=== PATIENT | female | born 1945 | race Caucasian/White ===

== ENCOUNTER 2016-07-28 19:15 | Inpatient (IN) | payer BC, OTHER ==
[~2016-07-28] VITALS: Ht 157.5 cm; Wt 77.2 kg
[~2016-07-28 19:15] MED LIST: ASCO1CAP3 PO; CRFL PO; FERR325T5 PO; FLV1 PO; FURO-85 PO; LACT10SO17 PO; MAGN400T6 PO; MILK1CAP PO; MULTCHW PO; NADO20TA PO; ONDA4TAB46 PO; OXYC1TAB3 PO; PANT40TA PO; POTA10CA28 PO; RIFA550T2 PO; SPR/100 PO; THIA100T11 PO
[2016-07-28 19:17] VITALS: Ht 157.5 cm; Wt 77.2 kg
[2016-07-28] MEDS ORDERED: SODIUM CHLORIDE 0.9% 500ML 500 ML IV STA (19:25)
[2016-07-28] MEDS ORDERED: ACETAMINOPHEN 500 MG TAB PO STA (19:25)
--- NOTE | 2016-07-28 19:30 | EMERGENCY ROOM VISIT NOTE ---
History Report prepared by Anatolyibmeagan: Shayna Askew Under the Supervision of: Dr. Lang Plata D.O. First contact with patient: 19:15 Chief Complaint: ALTERED MENTAL STATUS Stated Complaint: ALTERED MENTAL STATUS History of Present Illness The patient is a 71 year old female who presents to the Emergency Room with a persistent altered mental status for the past 2 days. She is accompanied by her sister and was brought to the ED via EMS. The patient has a history of end stage renal disease due to alcoholic cirrhosis and esophageal varices. She lives at home, but has been lethargic, nauseous and vomiting for the past 2 days. Her sister reports she noticed the patient had a fever this morning and seemed to be more confused than normal, so she called an ambulance. The patient was incontinent of urine while en route to the ED. Nursing reports the patient cannot recall the date or year when asked. The patients sister denies any recent falls or head injuries. She admits to some recent hematochezia, but states this is chronic for her. Source of History: patient Onset: [employer] Position: other (global) Timing: other (persistent) Associated Symptoms: + fevers, + nausea, + vomiting, + hematochezia, + weakness (lethargy) Review of Systems See HPI for pertinent positives & negatives. A total of 10 systems reviewed and were otherwise negative. Past Medical & Surgical Medical Problems: (1) Alcoholic cirrhosis of liver (2) FUO (fever of unknown origin) (3) FUO (fever of unknown origin) (4) History of alcohol abuse (5) Hypertension (6) Peptic ulcer disease (7) Umbilical hernia Surgical Problems: (1) History of esophagogastroduodenoscopy (2) History of hysterectomy (3) Incarcerated hernia Family History Cancer Diabetes mellitus FH: heart disease FATHER Hypertension Social History Smoking Status: Never Smoker Alcohol Use: heavy, other Drug Use: none Marital Status: Housing Status: lives alone Occupation Status: retired Current/Historical Medications Scheduled Ascorbic Acid (Vitamin C), 500 MG PO DAILY Ferrous Sulfate (Ferrous Sulfate), 325 MG PO Q2D Fluoxetine (Prozac), 10 MG PO QAM Folic Acid (Folic Acid), 1 MG PO QAM Furosemide (Lasix), 80 MG PO DAILY Magnesium Oxide (Mag-Ox), 400 MG PO BID Milk Thistle (Silybum Marianum (Milk Thistle), 1 CAP PO DAILY Multiple Vitamins W/ Minerals (Centrum Silver), 1 TAB PO DAILY Nadolol (Corgard), 10 MG PO DAILY Pantoprazole (Protonix), 40 MG PO BID Potassium Chloride (Micro-K Ext Rel), 10 MEQ PO DAILY Rifaximin (Xifaxan), 550 MG PO BID Spironolactone (Aldactone), 200 MG PO DAILY Sucralfate (Carafate), 1 GM PO QID Thiamine Hcl (Vitamin B-1), 100 MG PO QAM Scheduled PRN Lactulose (Chronulac), 20 GM PO HS PRN for Constipation Ondansetron Hcl (Zofran), 4 MG PO DAILY PRN for Nausea Tramadol (Ultram), 50 MG PO TID PRN for Pain Allergies Coded Allergies: Guaifenesin (Verified Allergy, Unknown, Unknown, 11/28/14) Morphine (Verified Allergy, Unknown, kidney failure, 11/28/14) Dextromethorphan (Verified Adverse Reaction, Intermediate, PALPITATIONS, 11/28/14) Doxylamine (Verified Adverse Reaction, Intermediate, PALPITATIONS, ) Pseudoephedrine (Verified Adverse Reaction, Intermediate, PALPITATIONS, ) Iodinated Diagnostic Agents (Verified Adverse Reaction, Unknown, KIDNEY PROBLEMS WITH CONTRAST DYE, 11/28/14) Physical Exam Vital Signs Date Time Temp Pulse Resp B/P (MAP) Pulse Ox O2 Delivery O2 Flow Rate FiO2 07/28/16 23:17 70 22 76/43 98 Room Air 07/28/16 22:36 72 20 81/46 98 07/28/16 21:55 74 22 90/43 98 Room Air 07/28/16 21:12 76 22 85/43 98 07/28/16 20:36 77 20 96/51 98 Room Air 07/28/16 20:00 82 26 102/57 98 Room Air 07/28/16 19:40 86 07/28/16 19:40 86 07/28/16 19:33 Room Air 07/28/16 19:17 39.0 85 26 113/46 95 Room Air Physical Exam GENERAL: Patient is listless, answers questions slowly and appears to be confused at times. EYES: The conjunctivae are clear. The pupils are round and reactive. EARS, NOSE, MOUTH AND THROAT: The nose is without any evidence of any deformity. Mucous membranes are dry, tongue is midline NECK: The neck is nontender and supple. RESPIRATORY: Lung sounds are diminished at both bases, no tachypnea or conversational dyspnea appreciated. CARDIOVASCULAR: Heart sounds are tachycardic but regular, no definite murmur noted to auscultation. GASTROINTESTINAL: The abdomen is mildly distended but soft. No specific tenderness, guarding or rigidity. PELVIS: The Pelvis is stable. No tenderness to palpation is noted. BACK: No midline tenderness or or step-off noted range of motion in flexion extension as well as rotation no signs of muscle spasm noted MUSCULOSKELETAL/EXTREMITIES: There is no evidence of gross deformity full range of motion is noted in the hips and shoulders SKIN: Pedal edema bilaterally. There is no obvious evidence of any rash. There are no petechiae, pallor or cyanosis noted. NEUROLOGIC: Patient is awake alert and oriented x3 Medical Decision & Procedures ER Provider Diagnostic Interpretation: Radiology results as stated below per my review and radiologist interpretation: CT OF THE HEAD WITHOUT CONTRAST CLINICAL HISTORY: Altered mental status. Fever. COMPARISON STUDY: Head CT November 28, 2014. TECHNIQUE: Helical axial images of the head were obtained without IV contrast. Automated exposure control was utilized for the study. FINDINGS: No acute intracranial hemorrhage, midline shift or mass effect is present. Mild atrophy is again noted. Ventricular system is stable. Basilar cisterns are patent. There are no extra-axial collections. Scattered white matter hypodensities suggest small vessel disease. There are no findings to suggest acute dural sinus thrombosis or acute territorial infarct. There are no significant calvarial abnormalities. Visualized portions of the sinuses and mastoid air cells are clear. IMPRESSION: No acute intracranial findings. Electronically signed by: Asif Espinoza M.D. 07/28/2016 9:03 PM CHEST ONE VIEW PORTABLE CLINICAL HISTORY: Sepsis COMPARISON STUDY: Chest radiograph November 28, 2014. FINDINGS: There is no pneumothorax or pleural effusion. No consolidation is identified. Cardiomediastinal silhouette is stable and there is no evidence of pulmonary edema. Appearance of the chest is unchanged. Minimal left basilar opacity suggests atelectasis. IMPRESSION: No acute cardiopulmonary findings. Electronically signed by: Asif Espinoza M.D. 07/28/2016 7:[address] OF THE ABDOMEN AND PELVIS WITHOUT CONTRAST CLINICAL HISTORY: Fever. Altered mental status. COMPARISON STUDY: CT of the abdomen and pelvis November 29, 2014. TECHNIQUE: Axial images of the abdomen and pelvis were obtained without IV contrast. Images were reviewed in the axial, sagittal, and coronal planes. FINDINGS: Visualized portions of the lower chest demonstrate a small left pleural effusion. Evaluation of the abdomen and pelvis is suboptimal on this unenhanced exam. As before, the liver is shrunken and dysmorphic with enlargement of the lateral segment. There is fissuring widening. The findings represent cirrhosis. Sensitivity for detection of hepatic lesions is diminished on this unenhanced exam but none are identified. There is a small amount of abdominal and pelvic ascites. Extensive varices are noted. Borderline splenomegaly is unchanged. There are gallstones within the gallbladder. There is no pneumatosis, free air or portal venous gas. There is wall calcification of the portal vein and superior mesenteric vein due to portal hypertension. There is no biliary or pancreatic ductal dilatation. Several ventral hernias are noted which contain collaterals with minimal infiltration. There is no evidence for a bowel obstruction. The appendix is normal. There is mild wall thickening of the ascending colon. Mesenteric infiltration and vessel engorgement is likely related to portal hypertension. There are no suspicious osseous lesions. A Dixon balloon and gas is present within the bladder. Unenhanced images of the adrenal glands and kidneys are unremarkable. There is no hydronephrosis. IMPRESSION: 1. Cirrhosis with manifestations of portal hypertension including a small amount of ascites and extensive varices. 2. Mild wall thickening of the ascending colon. This is likely related to portal hypertension although a nonspecific colitis could appear similar. 3. Suboptimal evaluation of the abdomen and pelvis given lack of contrast on this exam. 4. Cholelithiasis. 5. No bowel obstruction. 6. Several ventral hernias, as described above. Electronically signed by: Asif Espinoza M.D. 07/28/2016 9:15 PM Laboratory Results Test 07/28/16 18:50 07/28/16 19:32 07/28/16 19:35 07/28/16 19:56 Immature Granulocyte % (Auto) 0.4 % White Blood Count 13.47 K/uL (4.8-10.8) Red Blood Count 3.72 M/uL (4.2-5.4) Hemoglobin 10.1 g/dL (12.0-16.0) Hematocrit 30.3 % (37-47) Mean Corpuscular Volume 81.5 fL (80-100) Mean Corpuscular Hemoglobin 27.2 pg (25-34) Mean Corpuscular Hemoglobin Concent 33.3 g/dl (32-36) Platelet Count 352 K/uL (130-400) Mean Platelet Volume 9.4 fL (7.4-10.4) Neutrophils (%) (Auto) 81.9 % Lymphocytes (%) (Auto) 9.7 % Monocytes (%) (Auto) 7.9 % Eosinophils (%) (Auto) 0.0 % Basophils (%) (Auto) 0.1 % Neutrophils # (Auto) 11.04 K/uL (1.4-6.5) Lymphocytes # (Auto) 1.30 K/uL (1.2-3.4) Monocytes # (Auto) 1.06 K/uL (0.11-0.59) Eosinophils # (Auto) 0.00 K/uL (0-0.5) Basophils # (Auto) 0.02 K/uL (0-0.2) Immature Granulocyte # (Auto) 0.05 K/uL (0.00-0.02) Erythrocyte Sedimentation Rate 59 mm/hr (0-21) Prothrombin Time 14.1 SECONDS (9.0-12.0) Prothromb Time International Ratio 1.3 (0.9-1.1) Activated Partial Thromboplast Time 29.1 SECONDS (21.0-31.0) Partial Thromboplastin Ratio 1.1 Phosphorus Level 2.6 mg/dl (2.5-4.9) Total Creatine Kinase 47 U/L (26-192) Creatine Kinase MB < 0.5 ng/ml (0.5-3.6) Creatine Kinase MB Ratio (0-3.0) Troponin I < 0.015 ng/ml (0-0.045) C-Reactive Protein 1.83 mg/dl (0-0.29) Pro-B-Type Natriuretic Peptide 383 pg/ml (0-900) Lipase 110 U/L (73-393) Ammonia 27.0 umol/L (11-32) Bedside Lactic Acid Venous 2.42 mmol/L (0.90-1.70) Urine Color YELLOW Urine Appearance CLEAR (CLEAR) Urine pH 7.0 (4.5-7.5) Urine Specific [place] 1.014 (1.000-1.030) Urine Protein NEG (NEG) Urine Glucose (UA) NEG (NEG) Urine Ketones NEG (NEG) Urine Occult Blood NEG (NEG) Urine Nitrite NEG (NEG) Urine Bilirubin NEG (NEG) Urine Urobilinogen NEG (NEG) Urine Leukocyte Esterase SMALL (NEG) Urine WBC (Auto) 1-5 /hpf (0-5) Urine RBC (Auto) 0-4 /hpf (0-4) Urine Hyaline Casts (Auto) 1-5 /lpf (0-5) Urine Epithelial Cells (Auto) >30 /lpf (0-5) Urine Bacteria (Auto) NEG (NEG) Urine Renal Epithelial Cells /lpf (0-5) Test 07/28/16 20:25 Venous Blood pH 7.41 (7.36-7.41) Venous Blood Partial Pressure CO2 37 mmHg (38.0-50.0) Venous Blood Partial Pressure O2 29 mmHg Venous Blood HCO3 23 mmol/L Venous Blood Oxygen Saturation < 60.0 % Venous Blood Base Excess -1.5 mmol/L Laboratory results per my review. Medications Administered Medications (Trade) Dose Ordered Sig/Nael Route Start Time Stop Time Status Last Admin Dose Admin Acetaminophen (Tylenol Tab) 1,000 mg ONE STAT PO 07/28/16 19:25 07/28/16 19:27 DC 07/28/16 19:45 1,000 MG Sodium Chloride 500 ml @ 999 mls/hr Q31M STAT IV 07/28/16 19:25 07/28/16 19:55 DC 07/28/16 19:49 999 MLS/HR Levofloxacin (Levaquin / D5W) 750 mg NOW STAT IV 07/28/16 20:25 07/28/16 20:27 DC 07/28/16 20:42 750 MG Pantoprazole Sodium 40 mg/ Syringe 10 ml @ 5 mls/min NOW ONCE IV 07/28/16 20:45 07/28/16 20:46 DC 07/28/16 20:58 5 MLS/MIN Famotidine (Pepcid 20mg/100 ml) 20 mg ONE STAT IV 07/28/16 20:40 07/28/16 20:41 DC 07/28/16 20:57 20 MG Sodium Chloride 1,000 ml @ 999 mls/hr Q1H1M STAT IV 07/28/16 21:14 07/28/16 22:14 DC 07/28/16 21:14 999 MLS/HR ECG Indication: altered mental status Rate (beats per minute): 85 Rhythm: sinus rhythm Findings: ST depression (diffuse ST depressions), no ectopy Comparison ECG Date: Changes are present but increased when compared to EKG from November 28, 2014 ED Course 1918: The patient was evaluated in room A12. A complete history and physical examination were performed. 1924: NSS 500 ml @ 999 mls/hr IV, Acetaminophen 1000 mg PO. 2024: Levaquin 750 mg IV. 2039: Famotidine 20 mg IV. 2044: Pantoprazole Sodium 40 mg/Syringe 10 ml @ 5 mls/min IV. 2123: NSS 1000 ml @ 999 mls/hr IV. 2207: I discussed the patients case with Dr. Chavira [facility] Hospitalist. The patient will be further evaluated. Medical Decision Medication Reconciliation: I attest that I have personally reviewed the patient' s current medications list. Blood pressure screening: Patient was found to have normal blood pressure on screening and does not require follow-up. Prior records/ancillary studies reviewed. Triage Nursing notes reviewed. Additional history obtained from the patients sister. The patient's history was concerning for fever. Differential diagnosis: Etiologies such as viral syndrome, otitis, pharyngitis, pneumonia, influenza, meningitis, urinary tract infection, sepsis, bacteremia, as well as others were entertained. The patient is a 71-year-old female who presented to emergency department for an evaluation of fever and altered mental status. She has a history of bacterial peritonitis in the past because of cirrhosis and ascites. The patient did not have any abdominal tenderness on physical exam. She was treated with Tylenol and when her fever improved her mental status improved as well. I discussed the patient's laboratory and radiographic studies with her. She was treated with IV fluids and IV antibiotics in emergency department. She had continued hypotension in the emergency department. I discussed her case with the on-call [facility] [place] hospitalist. They've agreed to evaluate the patient in the emergency department for further management and disposition. Consults Time Called: 2206 Consulting Physician: Dr. Chavira [facility] Hospitalist Returned Call: [phone] I discussed the patients case with Dr. Chavira [facility] Hospitalist. The patient will be further evaluated. Impression Primary Impression: Fever Additional Impressions: Altered mental status GI bleeding Hypotension Scribe Attestation The scribe's documentation has been prepared under my direction and personally reviewed by me in its entirety. I confirm that the note above accurately reflects all work, treatment, procedures, and medical decision making performed by me. Departure Information Dispostion Being Evaluated By Hospitalist Celestine Pendleton M.D. (PCP) Patient Instructions My [facility] Problem Qualifiers Primary Impression: Fever Fever type: unspecified Qualified Codes: R50.9 - Fever, unspecified Additional Impressions: Altered mental status Altered mental status type: unspecified Qualified Codes: R41.82 - Altered mental status, unspecified GI bleeding GI bleed type/associated pathology: unspecified gastrointestinal hemorrhage type Qualified Codes: K92.2 - Gastrointestinal hemorrhage, unspecified Hypotension Hypotension type: unspecified hypotension type Qualified Codes: I95.9 - Hypotension, unspecified
[2016-07-28 19:33] LABS: BASO % 0.1 %; BASO ABS # 0.02 K/uL (0-0.2); COMPLETE YES; HEMATOCRIT 30.3 % (37-47); IG% 0.4 %; LYMPH % 9.7 %; MEAN CELL VOLUME 81.5 fL (80-100); MEAN CORPUSCULAR HEMOGLOBIN 27.2 pg (25-34); MEAN CORPUSCULAR HGB CONC 33.3 g/dl (32-36); MEAN PLATELET VOLUME 9.4 fL (7.4-10.4); MONO % 7.9 %; NEUT % 81.9 %; PLATELET COUNT 352 K/uL (130-400); RED BLOOD COUNT 3.72 M/uL (4.2-5.4); WHITE BLOOD COUNT 13.47 K/uL (4.8-10.8)
[2016-07-28 19:43] LABS: INR 1.3 (0.9-1.1); PARTIAL THROMBOPLASTIN RATIO 1.1; PROTHROMBIN TIME (PATIENT) 14.1 SECONDS (9.0-12.0)
--- NOTE | 2016-07-28 19:46 | DIAGNOSTIC IMAGING REPORT ---
CHEST ONE VIEW PORTABLE CLINICAL HISTORY: Sepsis COMPARISON STUDY: Chest radiograph November 28, 2014. FINDINGS: There is no pneumothorax or pleural effusion. No consolidation is identified. Cardiomediastinal silhouette is stable and there is no evidence of pulmonary edema. Appearance of the chest is unchanged. Minimal left basilar opacity suggests atelectasis. IMPRESSION: No acute cardiopulmonary findings. Electronically signed by: Asif Espinoza M.D. 07/28/2016 7:44 PM Dictated Date/Time: 07/28/2016 7:43 PM
[2016-07-28 19:53] LABS: AST/SGOT 42 U/L (15-37); BLOOD UREA NITROGEN 13 mg/dl (7-18); BUN/CREATININE RATIO 10.9 (10-20); CARBON DIOXIDE 24 mmol/L (21-32); CHLORIDE 97 mmol/L (98-107); GLUCOSE 124 mg/dl (70-99); POTASSIUM 3.9 mmol/L (3.5-5.1); SODIUM 132 mmol/L (136-145)
[2016-07-28 19:59] LABS: ALB/GLOB RATIO 0.5 (0.9-2); ALKALINE PHOSPHATASE 153 U/L (45-117); ALT/SGPT 26 U/L (12-78); C-REACTIVE PROTEIN 1.83 mg/dl (0-0.29); PHOSPHORUS 2.6 mg/dl (2.5-4.9)
[2016-07-28 20:08] LABS: URINE APPEARANCE CLEAR (CLEAR); URINE BILIRUBIN NEG (NEG); URINE COLOR YELLOW; URINE EPITHELIAL CELL AUTO >30 /lpf (0-5); URINE NITRITE NEG (NEG); URINE SPECIFIC GRAVITY 1.014 (1.000-1.030); UROBILINOGEN NEG (NEG); ZZURINE CULT IF INDIC CATH NO
[2016-07-28] MEDS ORDERED: PANT40TA PO (20:22)
[2016-07-28] MEDS ORDERED: FLUO10CA48 PO (20:22)
[2016-07-28] MEDS ORDERED: TRAM-10 PO (20:22)
[2016-07-28 20:23] LABS: MANUAL MICROSCOPIC REQUIRED? NO; REVIEW REQ? YES
[2016-07-28] MEDS ORDERED: LEVAQUIN 750MG / 150ML D5W IV STA (20:25)
[2016-07-28 20:32] LABS: VEN BLD GAS O2 SATURATION < 60.0 %; VEN BLOOD GAS BASE EXCESS -1.5 mmol/L; VENOUS BLOOD GAS PCO2 37 mmHg (38.0-50.0); VENOUS BLOOD GAS PO2 29 mmHg
[2016-07-28] MEDS ORDERED: FAMOTIDINE 20MG/102 ML D5W IV STA (20:40)
[2016-07-28] MEDS ORDERED: PANTOprazole INJ 40 MG in SYRINGE 0 ML IV ONE (20:45)
--- NOTE | 2016-07-28 21:05 | DIAGNOSTIC IMAGING REPORT ---
CT OF THE HEAD WITHOUT CONTRAST CLINICAL HISTORY: Altered mental status. Fever. COMPARISON STUDY: Head CT November 28, 2014. TECHNIQUE: Helical axial images of the head were obtained without IV contrast. Automated exposure control was utilized for the study. FINDINGS: No acute intracranial hemorrhage, midline shift or mass effect is present. Mild atrophy is again noted. Ventricular system is stable. Basilar cisterns are patent. There are no extra-axial collections. Scattered white matter hypodensities suggest small vessel disease. There are no findings to suggest acute dural sinus thrombosis or acute territorial infarct. There are no significant calvarial abnormalities. Visualized portions of the sinuses and mastoid air cells are clear. IMPRESSION: No acute intracranial findings. Electronically signed by: Asif Espinoza M.D. 07/28/2016 9:03 PM Dictated Date/Time: 07/28/2016 9:01 PM
[2016-07-28] MEDS ORDERED: SODIUM CHLORIDE 0.9% 1000ML 1,000 ML IV STA (21:14)
--- NOTE | 2016-07-28 21:16 | DIAGNOSTIC IMAGING REPORT ---
CT OF THE ABDOMEN AND PELVIS WITHOUT CONTRAST CLINICAL HISTORY: Fever. Altered mental status. COMPARISON STUDY: CT of the abdomen and pelvis November 29, 2014. TECHNIQUE: Axial images of the abdomen and pelvis were obtained without IV contrast. Images were reviewed in the axial, sagittal, and coronal planes. FINDINGS: Visualized portions of the lower chest demonstrate a small left pleural effusion. Evaluation of the abdomen and pelvis is suboptimal on this unenhanced exam. As before, the liver is shrunken and dysmorphic with enlargement of the lateral segment. There is fissuring widening. The findings represent cirrhosis. Sensitivity for detection of hepatic lesions is diminished on this unenhanced exam but none are identified. There is a small amount of abdominal and pelvic ascites. Extensive varices are noted. Borderline splenomegaly is unchanged. There are gallstones within the gallbladder. There is no pneumatosis, free air or portal venous gas. There is wall calcification of the portal vein and superior mesenteric vein due to portal hypertension. There is no biliary or pancreatic ductal dilatation. Several ventral hernias are noted which contain collaterals with minimal infiltration. There is no evidence for a bowel obstruction. The appendix is normal. There is mild wall thickening of the ascending colon. Mesenteric infiltration and vessel engorgement is likely related to portal hypertension. There are no suspicious osseous lesions. A Dixon balloon and gas is present within the bladder. Unenhanced images of the adrenal glands and kidneys are unremarkable. There is no hydronephrosis. IMPRESSION: 1. Cirrhosis with manifestations of portal hypertension including a small amount of ascites and extensive varices. 2. Mild wall thickening of the ascending colon. This is likely related to portal hypertension although a nonspecific colitis could appear similar. 3. Suboptimal evaluation of the abdomen and pelvis given lack of contrast on this exam. 4. Cholelithiasis. 5. No bowel obstruction. 6. Several ventral hernias, as described above. Electronically signed by: Asif Espinoza M.D. 07/28/2016 9:15 PM Dictated Date/Time: 07/28/2016 9:03 PM
[2016-07-28] MEDS ORDERED: ONDANSETRON 4 MG TAB PO PRN (22:15)
[2016-07-28] MEDS ORDERED: LACTULOSE SYRUP 20 GM/30 ML UDC PO PRN (22:15)
[2016-07-28] MEDS ORDERED: XYLOCAINE 1%/SOD BICARB 20 ML VIAL INFIL ONE (22:16)
[2016-07-28] MEDS ORDERED: ONDANSETRON INJ 2 MG/ML 2 ML VIAL IV PRN (23:00)
[2016-07-28] MEDS ORDERED: ALUMINUM/MAGNESIUM/SIMETH (MAALOX MAX) 30 ML UDC PO PRN (23:00)
--- NOTE | 2016-07-28 23:17 | History and Physical ---
History & Physical Date & Time of Service: Jul 28, 2016 at 22:01 Chief Complaint: Altered Mental Status Primary Care Physician: Celestine Maxwell M.D. History of Present Illness Source: family, other 71 y/o F Hx end-stage liver disease, recurrent ascites and hepatic encephalopathy. Pt was brought in by family due to confusion above baseline over the past 2 days. She was markedly confused and febrile on arrival to the ER, however, following a litre of fluid, her mental status returned to baseline. She is a poor historian and chronically disoriented although she can answer simple questions. She denies abdominal pain, n/v, SOB a cough or dysuria. She frequently has diarrhea owing to Lactulose use. On initial labs she has an elevated lactic acid and leukocytosis. She is intermittently hypotensive on admission although it is unclear if this is acute or what her baseline BP is. Past Medical/Surgical History Medical Problems: (1) Alcoholic cirrhosis of liver Status: Chronic (2) History of alcohol abuse Status: Chronic (3) Hypertension Status: Chronic (4) Peptic ulcer disease Status: Chronic (5) Umbilical hernia Status: Chronic Surgical Problems: (1) History of esophagogastroduodenoscopy Status: Resolved (2) History of hysterectomy Status: Resolved (3) Incarcerated hernia Status: Resolved Family History Cancer Diabetes mellitus FH: heart disease FATHER Hypertension Social History Pt continues to consume alcohol intermittently. Smoking Status: Never Smoker Drug Use: none Marital Status: Housing status: lives alone Occupational Status: retired Immunizations History of Influenza Vaccine: No History of Tetanus Vaccine?: No History of Pneumococcal: No History of Hepatitis B Vaccine: Yes Hepatitis Immunization Date: Nov 25, 2010 Multi-Drug Resistant Organisms History of MDRO: No Allergies Coded Allergies: Guaifenesin (Verified Allergy, Unknown, Unknown, 11/28/14) Morphine (Verified Allergy, Unknown, kidney failure, 11/28/14) Dextromethorphan (Verified Adverse Reaction, Intermediate, PALPITATIONS, 11/28/14) Doxylamine (Verified Adverse Reaction, Intermediate, PALPITATIONS, ) Pseudoephedrine (Verified Adverse Reaction, Intermediate, PALPITATIONS, ) Iodinated Diagnostic Agents (Verified Adverse Reaction, Unknown, KIDNEY PROBLEMS WITH CONTRAST DYE, 11/28/14) Home Medications Scheduled Ascorbic Acid (Vitamin C), 500 MG PO DAILY Ferrous Sulfate (Ferrous Sulfate), 325 MG PO Q2D Fluoxetine (Prozac), 10 MG PO QAM Folic Acid (Folic Acid), 1 MG PO QAM Furosemide (Lasix), 80 MG PO DAILY Magnesium Oxide (Mag-Ox), 400 MG PO BID Milk Thistle (Silybum [place]um (Milk Thistle), 1 CAP PO DAILY Multiple Vitamins W/ Minerals (Centrum Silver), 1 TAB PO DAILY Nadolol (Corgard), 10 MG PO DAILY Pantoprazole (Protonix), 40 MG PO BID Potassium Chloride (Micro-K Ext Rel), 10 MEQ PO DAILY Rifaximin (Xifaxan), 550 MG PO BID Spironolactone (Aldactone), 200 MG PO DAILY Sucralfate (Carafate), 10 ML PO QID Thiamine Hcl (Vitamin B-1), 100 MG PO QAM Scheduled PRN Lactulose (Chronulac), 30 ML PO HS PRN for Constipation Ondansetron Hcl (Zofran), 4 MG PO DAILY PRN for Nausea Tramadol (Ultram), 50 MG PO TID PRN for Pain Review of Systems Pt is not a reliable historian Physical Exam Vital Signs Date Time Temp Pulse Resp B/P (MAP) Pulse Ox O2 Delivery O2 Flow Rate FiO2 07/28/16 21:12 76 22 85/43 98 07/28/16 20:36 77 20 96/51 98 Room Air 07/28/16 20:00 82 26 102/57 98 Room Air 07/28/16 19:40 86 07/28/16 19:40 86 07/28/16 19:33 Room Air 07/28/16 19:17 39.0 85 26 113/46 95 Room Air General Appearance: WD/WN, no apparent distress Head: normocephalic, atraumatic Eyes: EOMI, + pertinent finding (mild icterus) ENT: normal ENT inspection, hearing grossly normal, TMs normal, pharynx normal Neck: supple, no adenopathy, thyroid normal, no JVD Respiratory/Chest: chest non-tender, lungs clear, normal breath sounds, no respiratory distress, no accessory muscle use Cardiovascular: regular rate, rhythm, no edema, no gallop, no JVD, no murmur, normal peripheral pulses Abdomen/GI: normal bowel sounds, non tender, soft, + distended Back: normal inspection, no CVA tenderness, no muscle spasm, normal range of motion Extremities/Musculoskelatal: normal inspection, no calf tenderness, normal capillary refill, no pedal edema, normal range of motion Neurologic/Psych: concession supervisor II-XII nml as tested, no motor/sensory deficits, alert, normal mood/affect, normal reflexes Skin: warm/dry, no rash, + pertinent finding (Jaundice present) Diagnostics Laboratory Results Results Past 24 Hours Test 07/28/16 18:50 07/28/16 19:32 07/28/16 19:35 07/28/16 19:56 Range/Units White Blood Count 13.47 4.8-10.8 K/uL Red Blood Count 3.72 4.2-5.4 M/uL Hemoglobin 10.1 12.0-16.0 g/dL Hematocrit 30.3 37-47 % Mean Corpuscular Volume 81.5 80-100 fL Mean Corpuscular Hemoglobin 27.2 25-34 pg Mean Corpuscular Hemoglobin Concent 33.3 32-36 g/dl Platelet Count 352 130-400 K/uL Mean Platelet Volume 9.4 7.4-10.4 fL Neutrophils (%) (Auto) 81.9 % Lymphocytes (%) (Auto) 9.7 % Monocytes (%) (Auto) 7.9 % Eosinophils (%) (Auto) 0.0 % Basophils (%) (Auto) 0.1 % Neutrophils # (Auto) 11.04 1.4-6.5 K/uL Lymphocytes # (Auto) 1.30 1.2-3.4 K/uL Monocytes # (Auto) 1.06 0.11-0.59 K/uL Eosinophils # (Auto) 0.00 0-0.5 K/uL Basophils # (Auto) 0.02 0-0.2 K/uL RDW Standard Deviation 50.3 36.4-46.3 fL RDW Coefficient of Variation 16.9 11.5-14.5 % Immature Granulocyte % (Auto) 0.4 % Immature Granulocyte # (Auto) 0.05 0.00-0.02 K/uL Erythrocyte Sedimentation Rate 59 0-21 mm/hr Prothrombin Time 14.1 9.0-12.0 SECONDS Prothromb Time International Ratio 1.3 0.9-1.1 Activated Partial Thromboplast Time 29.1 21.0-31.0 SECONDS Partial Thromboplastin Ratio 1.1 Sodium Level 132 136-145 mmol/L Potassium Level 3.9 3.5-5.1 mmol/L Chloride Level 97 98-107 mmol/L Carbon Dioxide Level 24 21-32 mmol/L Anion Gap 11.0 3-11 mmol/L Blood Urea Nitrogen 13 7-18 mg/dl Creatinine 1.20 0.60-1.20 mg/dl Est Creatinine Clear Calc Drug Dose 39.3 ml/min Estimated GFR () 51.9 Estimated GFR (Non- 44.8 BUN/Creatinine Ratio 10.9 10-20 Random Glucose 124 70-99 mg/dl Calcium Level 8.0 8.5-10.1 mg/dl Phosphorus Level 2.6 2.5-4.9 mg/dl Magnesium Level 2.0 1.8-2.4 mg/dl Total Bilirubin 0.9 0.2-1 mg/dl Aspartate Amino Transf (AST/SGOT) 42 15-37 U/L Alanine Aminotransferase (ALT/SGPT) 26 12-78 U/L Alkaline Phosphatase 153 45-117 U/L Total Creatine Kinase 47 26-192 U/L Creatine Kinase MB < 0.5 0.5-3.6 ng/ml Creatine Kinase MB Ratio 0-3.0 Troponin I < 0.015 0-0.045 ng/ml C-Reactive Protein 1.83 0-0.29 mg/dl Pro-B-Type Natriuretic Peptide 383 0-900 pg/ml Total Protein 6.4 6.4-8.2 gm/dl Albumin 2.1 3.4-5.0 gm/dl Globulin 4.3 2.5-4.0 gm/dl Albumin/Globulin Ratio 0.5 0.9-2 Lipase 110 73-393 U/L Ammonia 27.0 11-32 umol/L Bedside Lactic Acid Venous 2.42 0.90-1.70 mmol/L Urine Color YELLOW Urine Appearance CLEAR CLEAR Urine pH 7.0 4.5-7.5 Urine Specific [place] 1.014 1.000-1.030 Urine Protein NEG NEG Urine Glucose (UA) NEG NEG Urine Ketones NEG NEG Urine Occult Blood NEG NEG Urine Nitrite NEG NEG Urine Bilirubin NEG NEG Urine Urobilinogen NEG NEG Urine Leukocyte Esterase SMALL NEG Urine WBC (Auto) 1-5 0-5 /hpf Urine RBC (Auto) 0-4 0-4 /hpf Urine Hyaline Casts (Auto) 1-5 0-5 /lpf Urine Epithelial Cells (Auto) >30 0-5 /lpf Urine Bacteria (Auto) NEG NEG Urine Renal Epithelial Cells 0-5 /lpf Test 07/28/16 20:25 Range/Units Venous Blood pH 7.41 7.36-7.41 Venous Blood Partial Pressure CO2 37 38.0-50.0 mmHg Venous Blood Partial Pressure O2 29 mmHg Venous Blood HCO3 23 mmol/L Venous Blood Oxygen Saturation < 60.0 % Venous Blood Base Excess -1.5 mmol/L Microbiology Results 07/28/16 Blood Culture, Received Pending 07/28/16 Blood Culture, Received Pending Diagnostic Radiology CT abdomen: 1. Cirrhosis with manifestations of portal hypertension including a small amount of ascites and extensive varices. 2. Mild wall thickening of the ascending colon. This is likely related to portal hypertension although a nonspecific colitis could appear similar. 3. Suboptimal evaluation of the abdomen and pelvis given lack of contrast on this exam. 4. Cholelithiasis. 5. No bowel obstruction. 6. Several ventral hernias, as described above. Impression Assessment and Plan 71 y/o F Hx end-stage liver disease, recurrent ascites and hepatic encephalopathy. Pt was brought in by family due to confusion above baseline over the past 2 days. She was markedly confused and febrile on arrival to the ER, however, following a litre of fluid, her mental status returned to baseline. She is a poor historian and chronically disoriented although she can answer simple questions. She denies abdominal pain, n/v, SOB a cough or dysuria. She frequently has diarrhea owing to Lactulose use. On initial labs she has an elevated lactic acid and leukocytosis. She is intermittently hypotensive on admission although it is unclear if this is acute or what her baseline BP is. 1) Fever - this is not clearly SBP and we do not have a definitive source. She does not have a tender abdomen and her confusion essentially resolved with IVF. I evaluated the pt for a diagnostic paracentesis with an ultrasound. Unfortunately there was no significant fluid collection aside from directly around the liver. She was therefore started on empiric treatment for SBP with Ceftriaxone and albumin largely due to hypotension, abnormal labs and high risk in delaying treatment. If her fever persists she should likely be scheduled for paracentesis with IR. Albumin should be redosed in 3 days if there is evidence for SBP. 2) Cirrhosis - ESLD - she will continue her scheduled medications aside from her diuretics which were held due to dehydration and hypotension. 3) ETOH abuse - no recent consumption per pt - watch for withdrawal although she is symptom-free on admission. Full code - SCDs Total time for this admit including review of labs, meds, imaging, records - discussion with pt and ER attending - 38 min Level of Care Telemetry Resuscitation Status FULL RESUSCITATION VTE Prophylaxis Given or contraindicated: SCD's
[2016-07-29] VITALS (18 sets, daily range): BP systolic 77–112; BP diastolic 40–72; PULSE 59–105; TEMP 36.4–37.4; O2SAT 90–99
[2016-07-29] MEDS: ALBUMIN HUMAN 25% 12.5 GM/50 ML VIAL IV SCH ×8 (00:44→07:58)
[2016-07-29] MEDS: CEFTRIAXONE SOD INJ 1 GM in DEXTROSE 5% ADD-VANTAGE 50ML 50 ML IV SCH (01:02)
[2016-07-29] MEDS: SUCRALFATE 1 GM/10 ML UDC PO SCH ×4 (05:56→21:05)
[2016-07-29 06:47] LABS: BUN/CREATININE RATIO 11.8 (10-20); CREATININE 1.3 mg/dl (0.60-1.20); MAGNESIUM 1.8 mg/dl (1.8-2.4); POTASSIUM 3.2 mmol/L (3.5-5.1)
[2016-07-29 06:50] LABS: HEMATOCRIT 21.7 % (37-47); MEAN CELL VOLUME 82.2 fL (80-100); MEAN CORPUSCULAR HEMOGLOBIN 26.5 pg (25-34); MEAN CORPUSCULAR HGB CONC 32.3 g/dl (32-36); MEAN PLATELET VOLUME 9.2 fL (7.4-10.4); PLATELET COUNT 177 K/uL (130-400); RED BLOOD COUNT 2.64 M/uL (4.2-5.4); WHITE BLOOD COUNT 8.95 K/uL (4.8-10.8)
[2016-07-29] MEDS ORDERED: PNEUMOCOCCAL POLYSACCHARIDES 25 MCG/0.5 ML VIAL/SYR IM. ONE (08:00)
[2016-07-29] MEDS ORDERED: PNEUMOCOCCAL ADMINISTRATION CHARGE ONE (08:00)
[2016-07-29] MEDS: MAGNESIUM OXIDE 400 MG TAB PO SCH ×2 (08:03→21:05)
[2016-07-29] MEDS: THIAMINE HCL 100 MG TAB PO SCH (08:03)
[2016-07-29] MEDS: POTASSIUM CHLORIDE 10 MEQ TABCR PO SCH (08:03)
[2016-07-29] MEDS: FLUOXETINE HCL 10 MG CAP PO SCH (08:03)
[2016-07-29] MEDS: PANTOprazole SOD 40 MG TAB PO SCH ×2 (08:04→21:05)
[2016-07-29] MEDS: FERROUS SULFATE 325 MG TAB PO SCH (08:05)
[2016-07-29] MEDS: RIFAXIMIN TAB 550 MG TAB PO SCH ×2 (08:07→21:05)
[2016-07-29] MEDS: NADOLOL 40 MG TAB PO SCH (08:10)
[2016-07-29] MEDS ORDERED: ALBUMIN HUMAN 25% 12.5 GM/50 ML VIAL IV SCH (08:30)
[2016-07-29] MEDS ORDERED: POTASSIUM CHLORIDE 10 MEQ TABCR PO ONE (08:45)
[2016-07-29] MEDS: POTASSIUM CHLR 10 MEQ / WTR 10 MEQ in PREMIXED WATER 100 ML IV SCH ×2 (08:53→10:10)
[2016-07-29] MEDS ORDERED: SPIRONOLACTONE 100 MG TAB PO SCH (09:00)
[2016-07-29] MEDS ORDERED: SUCRALFATE 1 GM/10 ML UDC PO SCH (09:00)
[2016-07-29 09:20] LABS: FERRITIN 25.7 ng/ml (8.0-388.0)
--- NOTE | 2016-07-29 13:29 | Progress Note ---
Subjective Date of Service: Jul 29, 2016. Subjective Pt evaluation today including: conversation w/ patient, conversation w/ family , physical exam, chart review, lab review, review of studies, review of inpatient medication list Pleasant, alert and orientated, conversational, eating breakfast Problem List Medical Problems: (1) Altered mental status Status: Acute (2) Fever Status: Acute (3) GI bleeding Status: Acute (4) Hypotension Status: Acute Review of Systems Constitutional: + weakness, + fatigue Eyes: No worsening of vision, No eye pain, No redness, No discharge, No diplopia ENT: No hearing loss, No unusual epistaxis, No nasal symptoms, No sore throat, No tinnitus, No dental problems, No trouble swallowing Respiratory: No cough, No sputum, No wheezing, No shortness of breath, No dyspnea on exertion, No dyspnea at rest, No hemoptysis Cardiac: No chest pain, No orthopnea, No PND, No edema, No claudication, No palpitations Abdomen: + problem reported (distended), No pain, No nausea, No vomiting, No diarrhea, No constipation Musculoskeletal: No joint pain, No muscle pain, No swelling, No calf pain Female : No dysuria, No urinary frequency, No hematuria, No incontinence, No abnormal vaginal bleeding, No vaginal discharge Neurologic: No memory loss, No paralysis, No weakness, No numbness/tingling, No vertigo, No balance problems Psychiatric: No depression symptoms, No anhedonism, No anxiety, No insomnia, No substance abuse Heme: No abnormal bleeding/bruising, No clotting problems, No swollen lymph nodes, No night sweats Endo: No fatigue, No excessive thirst, No excessive urination Skin: No rash, No itch, No new/changing skin lesions, No color change, No bleeding Objective Vital Signs Date Time Temp Pulse Resp B/P (MAP) Pulse Ox O2 Delivery O2 Flow Rate FiO2 07/29/16 13:05 36.4 59 16 109/66 (80) 93 07/29/16 12:00 97 Room Air 07/29/16 12:00 36.7 80 16 100/56 (71) 97 07/29/16 08:24 36.7 76 16 94/58 (70) 97 07/29/16 08:00 95 Room Air 07/29/16 06:43 36.7 76 16 87/41 (56) 95 Room Air 07/29/16 05:59 74 85/48 (60) 07/29/16 05:12 36.4 74 18 83/44 (57) 99 Room Air 07/29/16 04:05 71 77/45 (56) 07/29/16 04:00 Room Air 07/29/16 02:58 36.9 72 20 79/43 (55) 98 Room Air 07/29/16 01:36 70 83/40 (54) 07/29/16 00:50 68 83/49 (60) 07/29/16 00:00 37.0 71 20 92/55 98 Room Air 07/28/16 23:26 36.8 07/28/16 23:17 70 22 76/43 98 Room Air 07/28/16 22:36 72 20 81/46 98 07/28/16 21:55 74 22 90/43 98 Room Air 07/28/16 21:12 76 22 85/43 98 07/28/16 20:36 77 20 96/51 98 Room Air 07/28/16 20:00 82 26 102/57 98 Room Air 07/28/16 19:40 86 07/28/16 19:40 86 07/28/16 19:33 Room Air 07/28/16 19:17 39.0 85 26 113/46 95 Room Air Physical Exam General Appearance: WD/WN, no apparent distress, + thin Eyes: normal inspection, PERRL, EOMI, sclerae normal ENT: normal ENT inspection, hearing grossly normal, pharynx normal Neck: supple, no adenopathy, thyroid normal, no JVD, no carotid bruits, trachea midline Respiratory/Chest: chest non-tender, normal breath sounds, no respiratory distress, no accessory muscle use, + decreased breath sounds Cardiovascular: regular rate, rhythm, no edema, no gallop, no JVD, no murmur Abdomen: normal bowel sounds, non tender, soft, no organomegaly, no pulsatile mass Extremities: normal range of motion, non-tender, normal inspection, no pedal edema, no calf tenderness, normal capillary refill, pelvis stable Neurologic/Psychiatric: information technology security manager II-XII nml as tested, no motor/sensory deficits, alert, normal mood/affect, oriented x 3 Skin: normal color, warm/dry, no rash Lymphatic: no adenopathy Laboratory Results Last 24 Hours Test 07/28/16 18:50 07/28/16 19:32 07/28/16 19:35 07/28/16 19:56 White Blood Count 13.47 K/uL Red Blood Count 3.72 M/uL Hemoglobin 10.1 g/dL Hematocrit 30.3 % Mean Corpuscular Volume 81.5 fL Mean Corpuscular Hemoglobin 27.2 pg Mean Corpuscular Hemoglobin Concent 33.3 g/dl Platelet Count 352 K/uL Mean Platelet Volume 9.4 fL Neutrophils (%) (Auto) 81.9 % Lymphocytes (%) (Auto) 9.7 % Monocytes (%) (Auto) 7.9 % Eosinophils (%) (Auto) 0.0 % Basophils (%) (Auto) 0.1 % Neutrophils # (Auto) 11.04 K/uL Lymphocytes # (Auto) 1.30 K/uL Monocytes # (Auto) 1.06 K/uL Eosinophils # (Auto) 0.00 K/uL Basophils # (Auto) 0.02 K/uL RDW Standard Deviation 50.3 fL RDW Coefficient of Variation 16.9 % Immature Granulocyte % (Auto) 0.4 % Immature Granulocyte # (Auto) 0.05 K/uL Erythrocyte Sedimentation Rate 59 mm/hr Prothrombin Time 14.1 SECONDS Prothromb Time International Ratio 1.3 Activated Partial Thromboplast Time 29.1 SECONDS Partial Thromboplastin Ratio 1.1 Sodium Level 132 mmol/L Potassium Level 3.9 mmol/L Chloride Level 97 mmol/L Carbon Dioxide Level 24 mmol/L Anion Gap 11.0 mmol/L Blood Urea Nitrogen 13 mg/dl Creatinine 1.20 mg/dl Est Creatinine Clear Calc Drug Dose 39.3 ml/min Estimated GFR () 51.9 Estimated GFR (Non- 44.8 BUN/Creatinine Ratio 10.9 Random Glucose 124 mg/dl Calcium Level 8.0 mg/dl Phosphorus Level 2.6 mg/dl Magnesium Level 2.0 mg/dl Total Bilirubin 0.9 mg/dl Aspartate Amino Transf (AST/SGOT) 42 U/L Alanine Aminotransferase (ALT/SGPT) 26 U/L Alkaline Phosphatase 153 U/L Total Creatine Kinase 47 U/L Creatine Kinase MB < 0.5 ng/ml Creatine Kinase MB Ratio Troponin I < 0.015 ng/ml C-Reactive Protein 1.83 mg/dl Pro-B-Type Natriuretic Peptide 383 pg/ml Total Protein 6.4 gm/dl Albumin 2.1 gm/dl Globulin 4.3 gm/dl Albumin/Globulin Ratio 0.5 Lipase 110 U/L Ammonia 27.0 umol/L Bedside Lactic Acid Venous 2.42 mmol/L Urine Color YELLOW Urine Appearance CLEAR Urine pH 7.0 Urine Specific [place] 1.014 Urine Protein NEG Urine Glucose (UA) NEG Urine Ketones NEG Urine Occult Blood NEG Urine Nitrite NEG Urine Bilirubin NEG Urine Urobilinogen NEG Urine Leukocyte Esterase SMALL Urine WBC (Auto) 1-5 /hpf Urine RBC (Auto) 0-4 /hpf Urine Hyaline Casts (Auto) 1-5 /lpf Urine Epithelial Cells (Auto) >30 /lpf Urine Bacteria (Auto) NEG Urine Renal Epithelial Cells /lpf Test 07/28/16 20:25 07/29/16 05:50 07/29/16 08:34 07/29/16 13:15 Venous Blood pH 7.41 Venous Blood Partial Pressure CO2 37 mmHg Venous Blood Partial Pressure O2 29 mmHg Venous Blood HCO3 23 mmol/L Venous Blood Oxygen Saturation < 60.0 % Venous Blood Base Excess -1.5 mmol/L White Blood Count 8.95 K/uL Red Blood Count 2.64 M/uL Hemoglobin 7.0 g/dL Hematocrit 21.7 % Mean Corpuscular Volume 82.2 fL Mean Corpuscular Hemoglobin 26.5 pg Mean Corpuscular Hemoglobin Concent 32.3 g/dl RDW Standard Deviation 51.1 fL RDW Coefficient of Variation 17.1 % Platelet Count 177 K/uL Mean Platelet Volume 9.2 fL Sodium Level 136 mmol/L Potassium Level 3.2 mmol/L Chloride Level 102 mmol/L Carbon Dioxide Level 22 mmol/L Anion Gap 12.0 mmol/L Blood Urea Nitrogen 15 mg/dl Creatinine 1.30 mg/dl Est Creatinine Clear Calc Drug Dose 36.3 ml/min Estimated GFR () 47.1 Estimated GFR (Non- 40.7 BUN/Creatinine Ratio 11.8 Random Glucose 103 mg/dl Lactic Acid Level 1.4 mmol/L Calcium Level 7.0 mg/dl Magnesium Level 1.8 mg/dl Total Bilirubin 0.8 mg/dl Aspartate Amino Transf (AST/SGOT) 25 U/L Alanine Aminotransferase (ALT/SGPT) 19 U/L Alkaline Phosphatase 91 U/L Total Protein 5.2 gm/dl Albumin 2.6 gm/dl Globulin 2.6 gm/dl Albumin/Globulin Ratio 1.0 Iron Level 19 mcg/dl Total Iron Binding Capacity 183 mcg/dl Ferritin 25.7 ng/ml Vitamin B12 Level 1899 pg/mL Folate > 24.00 ng/mL Assessment and Plan 71 y/o F admitted on July [id number] because of altered mental status Per report , pt was in by family due to confusion above baseline over the past 2 days, markedly confused and febrile on arrival to the ER, however, following a litre of fluid, her mental status returned to baseline. Hx end-stage liver disease, recurrent ascites and hepatic encephalopathy. Possible sepsis with Fever, mental status changes leukocytosis and an elevated lactase: Stable and improving Possible from SBP Chest x-ray negative, UA negative does not have a tender abdomen Patient was evaluated the pt for a diagnostic paracentesis with an ultrasound upon admission. Unfortunately there was no significant fluid collection aside from directly around the liver. We'll continue empiric treatment for SBP with Ceftriaxone and albumin largely due to hypotension, Albumin should be redosed in 3 days if there is evidence for SBP. Improving Will have GI consult Cirrhosis - ESLD I know from previous admission Was planning to have home hospice care upon discharge in last admission continue her scheduled medications aside from her diuretics which were held due to dehydration and hypotension. Possible acute anemia hemoglobin from 10 dropped to 7, no obvious signs of bleeding Abdominal CT was done in admission, was no acute disease Possible delusional from IV fluid Anemia panel was sent, including stool Hemoccult Planning to check H&H again today, May planning transfusion if continue drop hx of ETOH abuse - no recent consumption per pt i called to pt's sister Erika, not available Full code GI and DVT prophylaxis Continued [facility] stay due to: multiple IV medications needed Discharge planning: home
[2016-07-29 15:14] LABS: HEMATOCRIT 20.5 % (37-47)
--- NOTE | 2016-07-29 15:31 | GASTROINTESTINAL CONSULTATION ---
DATE OF CONSULTATION: 07/29/2016 REASON FOR EVALUATION: Altered mental status. HISTORY OF PRESENT ILLNESS: The patient is a 71-year-old patient of mine with [place] cirrhosis, who presented to the hospital with increasing confusion over the last 48 hours. On arrival in the ER, she was febrile and confused and dehydrated. She was given a liter of fluid and her mental status improved rapidly back to her baseline. The patient was started empirically on ceftriaxone after CT scan showed only a trace amount of ascitic fluid around the liver and not really enough to go after by paracentesis. She reports no abdominal pain; however, no vomiting of blood and no visible blood in her stools. She uses lactulose at home periodically for encephalopathy as well as Xifaxan twice a day for hepatic encephalopathy. She also is on Aldactone for her ascites. When she was evaluated in the Emergency Room, her white count was elevated. GI consultation has been requested due to her underlying liver disease and fact that her blood count today is only 7. In the past, she was found to be anemic and an EGD showed gastric ulcers from taking nonsteroidals, which she was advised to avoid. PAST MEDICAL HISTORY: Remarkable for [place] cirrhosis, complicated by hepatic encephalopathy, esophageal varices and ascites. She has had a hysterectomy. She has an umbilical hernia. She has had gastric ulcers with bleeding in the past, hypertension. FAMILY HISTORY: Remarkable for diabetes, heart disease in her father, hypertension and cancer. SOCIAL HISTORY: The patient is . She lives with her sister, does not smoke. She was advised to abstain from alcohol, but apparently has been drinking occasionally. MEDICATIONS: Per list. ALLERGIES: GUAIFENESIN, MORPHINE, DEXTROMETHORPHAN, PSEUDOEPHEDRINE AND IODINE. REVIEW OF SYSTEMS: Positive for some abdominal swelling with herniation. Remainder is negative. 5PHYSICAL EXAMINATION: GENERAL: The patient appears awake, alert, in no acute distress. VITAL SIGNS: Blood pressure is 100/50, pulse 76, room air saturation 98%. ABDOMEN: Distended. There is an umbilical hernia which is not reducible. There is no hepatosplenomegaly that is palpable due to the distention. There is no tenderness. EXTREMITIES: Showed 0-1+ edema in her lower extremities. NEUROLOGIC: Shows her to be oriented to person and place but not time. She thought it was Saturday when is actually Saturday. There is no asterixis on neurologic exam. LABORATORY DATA: Shows hemoglobin going from 10.1 down to 7, white count was 13.47 on admission and has returned to normal overnight, platelet count is normal in the 300 range. BUN-creatinine ratio is 10.9, SGOT is 42, SGPT 26, alkaline phosphatase 153. Bilirubin is 0.9, creatinine 1.2. IMPRESSION AND PLAN: The patient has cirrhosis with increasing confusion, probably from dehydration. She has improved with rehydration and there is very little ascites, although she is being treated empirically for spontaneous bacterial peritonitis. We will continue Xifaxan and use Lactulose as needed. She is also on nadolol and spironolactone, which will also be continued. Her anemia is of concern and in the past she has had bleeding ulcers. She also has esophageal varices. We will plan on scoping her tomorrow to evaluate her upper GI for source of blood loss, although her BUN-creatinine ratio is normal. Also plan on getting a stool Hemoccult. Will follow the patient during her hospital stay.
[2016-07-29] MEDS ORDERED: FUROSEMIDE INJ 20 MG in SYRINGE 0 ML IV SCH (16:00)
[2016-07-29] MEDS: TRAMADOL HCL 50 MG TAB PO PRN (21:52)
[2016-07-29 22:24] LABS: HEMATOCRIT 23.5 % (37-47)
[2016-07-30] VITALS (13 sets, daily range): BP systolic 93–135; BP diastolic 57–71; PULSE 69–82; TEMP 36.5–37.1; O2SAT 95–97
[2016-07-30] MEDS: CEFTRIAXONE SOD INJ 1 GM in DEXTROSE 5% ADD-VANTAGE 50ML 50 ML IV SCH ×2 (00:34→23:37)
[2016-07-30] MEDS: SUCRALFATE 1 GM/10 ML UDC PO SCH ×4 (06:22→20:25)
[2016-07-30 07:19] LABS: BASO % 0.2 %; BASO ABS # 0.02 K/uL (0-0.2); COMPLETE YES; EOS % 0.5 %; HEMATOCRIT 28.1 % (37-47); IG% 0.3 %; LYMPH % 7.1 %; LYMPH ABS # 0.67 K/uL (1.2-3.4); MEAN CELL VOLUME 83.6 fL (80-100); MEAN CORPUSCULAR HEMOGLOBIN 28.3 pg (25-34); MEAN CORPUSCULAR HGB CONC 33.8 g/dl (32-36); MEAN PLATELET VOLUME 9.4 fL (7.4-10.4); MONO % 17.2 %; NEUT % 74.7 %; PLATELET COUNT 175 K/uL (130-400); RED BLOOD COUNT 3.36 M/uL (4.2-5.4); WHITE BLOOD COUNT 9.38 K/uL (4.8-10.8)
[2016-07-30 07:27] LABS: BUN/CREATININE RATIO 13.1 (10-20); CALCIUM 7.9 mg/dl (8.5-10.1); CREATININE 1.3 mg/dl (0.60-1.20); MAGNESIUM 2.1 mg/dl (1.8-2.4); POTASSIUM 3.1 mmol/L (3.5-5.1)
[2016-07-30] MEDS: NADOLOL 40 MG TAB PO SCH (09:00)
[2016-07-30] MEDS: RIFAXIMIN TAB 550 MG TAB PO SCH ×2 (09:00→20:26)
[2016-07-30] MEDS: FLUOXETINE HCL 10 MG CAP PO SCH (09:00)
[2016-07-30] MEDS: THIAMINE HCL 100 MG TAB PO SCH (09:00)
[2016-07-30] MEDS: PANTOprazole SOD 40 MG TAB PO SCH ×2 (09:00→20:26)
[2016-07-30] MEDS: MAGNESIUM OXIDE 400 MG TAB PO SCH ×2 (09:00→20:26)
[2016-07-30] MEDS: POTASSIUM CHLORIDE 10 MEQ TABCR PO SCH (09:00)
--- NOTE | 2016-07-30 14:20 | Endo History and Physical ---
History & Physical Date of Service: Jul 30, 2016. Chief Complaint: Anemia Referring Physician: Dr Miller History of Present Illness For EGD Past Medical History Gastrointestinal Disorder, Hypertension, Liver Disease Past Surgical History Hx Cardiac Surgery: No Hx Internal Defibrillator: No Hx Pacemaker: No Hx Abdominal Surgery: Yes (incarcerated hernia repair, hysterectomy) Hx Post-Op Nausea and Vomiting: No Hx Cancer Surgery: No Hx Thoracic Surgery: No Hx Orthopedic: No Hx Urinary Tract Surgery: No Social History Smoking Status: Unknown if Ever Smoked Hx Substance Use: No Hx Alcohol Use: No Allergies Coded Allergies: Guaifenesin (Verified Allergy, Unknown, Unknown, 11/28/14) Morphine (Verified Allergy, Unknown, kidney failure, 11/28/14) Dextromethorphan (Verified Adverse Reaction, Intermediate, PALPITATIONS, 11/28/14) Doxylamine (Verified Adverse Reaction, Intermediate, PALPITATIONS, ) Pseudoephedrine (Verified Adverse Reaction, Intermediate, PALPITATIONS, ) Iodinated Diagnostic Agents (Verified Adverse Reaction, Unknown, KIDNEY PROBLEMS WITH CONTRAST DYE, 11/28/14) Current Medications Reported Home Medications Medications Dose Route/Sig Max Daily Dose Days Date Category Dose Instructions Protonix (Pantoprazole Sodium) 40 Mg Tab 40 Mg PO BID 07/28/16 Reported Ultram (Tramadol HCl) 50 Mg Tab 50 Mg PO TID PRN 07/28/16 Reported Prozac (Fluoxetine HCl) 10 Mg Cap 10 Mg PO QAM 07/28/16 Reported Micro-K Ext Rel (Potassium Chloride) 10 Meq Capcr 10 Meq PO DAILY 12/06/14 Reported Zofran (Ondansetron HCl) 4 Mg Tab 4 Mg PO DAILY PRN 11/20/14 Reported Milk Thistle (Milk Thistle (Silybum Marianum) 500 Mg Cap 1 Cap PO DAILY 11/19/14 Reported Xifaxan (Rifaximin) 550 Mg Tab 550 Mg PO BID 11/19/14 Reported Vitamin C (Ascorbic Acid) 500 Mg Cap 500 Mg PO DAILY 10/06/14 Reported Carafate (Sucralfate) 1 Gm/10 Ml Sherin 1 Gm PO QID 07/28/14 Reported Ferrous Sulfate 325 Mg Tab 325 Mg PO Q2D 05/12/14 Reported Aldactone (Spironolactone) 100 Mg Tab 200 Mg PO DAILY 04/06/14 Reported TAKE TWO 100MG TABLETS Corgard (Nadolol) 20 Mg Tab 10 Mg PO DAILY 04/06/14 Reported TAKE HALF OF A 20MG TABLET Lasix (Furosemide) 20 Mg Tab 80 Mg PO DAILY 02/15/14 Reported TAKE FOUR 20MG TABLETS Chronulac (Lactulose) 10 Gm/15 Ml Syrp 20 Gm PO HS PRN 02/01/14 Reported Centrum Silver (Multiple Vitamins W/ Minerals) 1 Chw Chw 1 Tab PO DAILY 09/04/13 Reported Vitamin B-1 (Thiamine HCl) 100 Mg Tab 100 Mg PO QAM 08/07/13 Reported Folic Acid 1 Mg Tab 1 Mg PO QAM 08/07/13 Reported Mag-Ox (Magnesium Oxide) 400 Mg Tab 400 Mg PO BID 08/07/13 Reported Vital Signs Weight (Kilograms): 74.600 Height (Feet): 5 Height (Inches): 2.00 Date Time Temp Pulse Resp B/P (MAP) Pulse Ox O2 Delivery O2 Flow Rate FiO2 07/30/16 11:45 Room Air 07/30/16 08:22 36.9 73 16 117/69 (85) 96 07/30/16 07:45 Room Air 07/30/16 04:45 37.0 74 18 102/60 07/30/16 04:00 Room Air 07/30/16 04:00 37.0 74 18 102/60 (74) 97 Room Air 07/30/16 03:45 36.8 69 18 93/57 07/30/16 03:15 37.1 72 20 121/69 07/30/16 03:00 37.1 76 18 105/57 07/30/16 02:45 36.9 73 18 110/64 07/30/16 01:00 37.0 73 18 135/69 97 07/30/16 00:48 36.9 73 16 117/69 96 Room Air 07/30/16 00:01 37.0 75 20 95/58 97 07/30/16 00:01 37.0 75 18 95/58 (70) 97 Room Air 07/30/16 00:01 Room Air 07/29/16 23:30 37.1 70 18 98/56 97 07/29/16 23:00 37.1 74 20 111/71 98 07/29/16 22:45 37.4 73 20 94/63 98 07/29/16 22:31 36.9 71 20 112/60 98 07/29/16 20:03 37.2 105 18 101/60 (74) 90 Room Air 07/29/16 20:00 Room Air 07/29/16 16:18 37.0 73 16 110/72 (85) 96 Room Air 07/29/16 16:00 Room Air Physical Exam General Appearance: WD/WN Respiratory/Chest: Respiratory effort: no dyspnea Cardiovascular: Heart Auscultation: RRR Abdomen: Inspection & Palpation: distended Assessment and Plan Anemia for EGD
--- NOTE | 2016-07-30 14:59 | Discharge Instructions ---
Endoscopy Patient Instructions Date / Procedure(s) Performed Jul 30, 2016. EGD Allergy Information Coded Allergies: Guaifenesin (Verified Allergy, Unknown, Unknown, 11/28/14) Morphine (Verified Allergy, Unknown, kidney failure, 11/28/14) Dextromethorphan (Verified Adverse Reaction, Intermediate, PALPITATIONS, 11/28/14) Doxylamine (Verified Adverse Reaction, Intermediate, PALPITATIONS, ) Pseudoephedrine (Verified Adverse Reaction, Intermediate, PALPITATIONS, ) Iodinated Diagnostic Agents (Verified Adverse Reaction, Unknown, KIDNEY PROBLEMS WITH CONTRAST DYE, 11/28/14) Discharge Date / Findings Jul 30, 2016. Ulcerated gastric polyps Medication Instructions Restart Stopped Medication(s): Current Inpatient Medications Medications (Trade) Dose Ordered Sig/Nael Route Start Time Stop Time Status Last Admin Dose Admin Ferrous Sulfate (Feosol Tab) 325 mg Q2D PO 07/29/16 09:00 08/28/16 08:59 07/29/16 08:05 325 MG Fluoxetine HCl (Prozac Cap) 10 mg QAM PO 07/29/16 09:00 08/28/16 08:59 07/29/16 08:03 10 MG Folic Acid (Folvite Tab) 1 mg QAM PO 07/29/16 09:00 08/28/16 08:59 07/29/16 08:02 1 MG Lactulose (Chronulac Syrup) 20 gm HS PRN PO 07/28/16 22:15 08/27/16 22:14 Magnesium Oxide (Mag-Ox Tab) 400 mg BID PO 07/29/16 09:00 08/28/16 08:59 07/29/16 21:05 400 MG Nadolol (Corgard Tab) 10 mg DAILY PO 07/29/16 09:00 08/28/16 08:59 Ondansetron HCl (Zofran Tab) 4 mg DAILY PRN PO 07/28/16 22:15 08/27/16 22:14 Pantoprazole Sodium (Protonix Tab) 40 mg BID PO 07/29/16 09:00 08/28/16 08:59 07/29/16 21:05 40 MG Potassium Chloride (Klor-Con M10) 10 meq DAILY PO 07/29/16 09:00 08/28/16 08:59 07/29/16 08:03 10 MEQ Rifaximin (Xifaxan Tab) 550 mg BID PO 07/29/16 09:00 08/28/16 08:59 07/29/16 21:05 550 MG Thiamine HCl (Vitamin B-1 Tab) 100 mg QAM PO 07/29/16 09:00 08/28/16 08:59 07/29/16 08:03 100 MG Tramadol HCl (Ultram Tab) 50 mg TID PRN PO 07/28/16 22:15 08/27/16 22:14 07/29/16 21:52 50 MG Ceftriaxone Sodium 1 gm/ Dextrose 50 ml @ 100 mls/hr Q24H IV 07/29/16 00:30 08/08/16 00:29 07/30/16 00:34 100 MLS/HR Al Hydrox/Mg Hydrox/Simethicone (Maalox Max Susp) 15 ml Q4H PRN PO 07/28/16 23:00 08/27/16 22:59 Ondansetron HCl (Zofran Inj) 4 mg Q6H PRN IV 07/28/16 23:00 08/27/16 22:59 Sucralfate (Carafate Susp) 1 gm ACHS PO 07/29/16 06:30 08/28/16 06:29 07/29/16 21:05 1 GM Current Inpatient Medications Medications (Trade) Dose Ordered Sig/Nael Route Start Time Stop Time Status Last Admin Dose Admin Ferrous Sulfate (Feosol Tab) 325 mg Q2D PO 07/29/16 09:00 08/28/16 08:59 07/29/16 08:05 325 MG Fluoxetine HCl (Prozac Cap) 10 mg QAM PO 07/29/16 09:00 08/28/16 08:59 07/29/16 08:03 10 MG Folic Acid (Folvite Tab) 1 mg QAM PO 07/29/16 09:00 08/28/16 08:59 07/29/16 08:02 1 MG Lactulose (Chronulac Syrup) 20 gm HS PRN PO 07/28/16 22:15 08/27/16 22:14 Magnesium Oxide (Mag-Ox Tab) 400 mg BID PO 07/29/16 09:00 08/28/16 08:59 07/29/16 21:05 400 MG Nadolol (Corgard Tab) 10 mg DAILY PO 07/29/16 09:00 08/28/16 08:59 Ondansetron HCl (Zofran Tab) 4 mg DAILY PRN PO 07/28/16 22:15 08/27/16 22:14 Pantoprazole Sodium (Protonix Tab) 40 mg BID PO 07/29/16 09:00 08/28/16 08:59 07/29/16 21:05 40 MG Potassium Chloride (Klor-Con M10) 10 meq DAILY PO 07/29/16 09:00 08/28/16 08:59 07/29/16 08:03 10 MEQ Rifaximin (Xifaxan Tab) 550 mg BID PO 07/29/16 09:00 08/28/16 08:59 07/29/16 21:05 550 MG Thiamine HCl (Vitamin B-1 Tab) 100 mg QAM PO 07/29/16 09:00 08/28/16 08:59 07/29/16 08:03 100 MG Tramadol HCl (Ultram Tab) 50 mg TID PRN PO 07/28/16 22:15 08/27/16 22:14 07/29/16 21:52 50 MG Ceftriaxone Sodium 1 gm/ Dextrose 50 ml @ 100 mls/hr Q24H IV 07/29/16 00:30 08/08/16 00:29 07/30/16 00:34 100 MLS/HR Al Hydrox/Mg Hydrox/Simethicone (Maalox Max Susp) 15 ml Q4H PRN PO 07/28/16 23:00 08/27/16 22:59 Ondansetron HCl (Zofran Inj) 4 mg Q6H PRN IV 07/28/16 23:00 08/27/16 22:59 Sucralfate (Carafate Susp) 1 gm ACHS PO 07/29/16 06:30 08/28/16 06:29 07/29/16 21:05 1 GM Provider Instructions Activity Restrictions - No exercising or heavy lifting for 24 hours. - Do not drink alcohol the day of the procedure. - Do not drive a car or operate machinery until the day after the procedure. - Do not make any important decisions or sign important papers in 24 hours after the procedure. Following Day: - Return to full activity which may include returning to work/school. Diet Start your diet with liquids and light foods (jello, soup, juice, toast). Then eat your usual diet if not nauseated. Treatment For Common After Affects For mild abdominal pain, bloating, or excessive gas: - Rest - Eat lightly - Lie on right side Follow-Up Information Follow-up with as scheduled Anesthesia Information What You Should Know You have had a procedure that required some medicine to reduce anxiety and discomfort. This treatment is called moderate sedation. After receiving the treatment, you may be sleepy, but you will be able to breathe on your own. The effects of the treatment may last for several hours. Follow these instructions along with Activity/Diet recommendations noted above: * Do NOT do anything where dizziness or clumsiness would be dangerous. * Rest quietly at home today, then you can be up and about tomorrow. * Have a responsible person stay with you the rest of today. * You may have had an I.V. today. If so, you may take the dressing off later today. Recommendations Call your doctor if: * Trouble breathing * Continuous vomiting for more than 24 hours * Temperature above 101 degrees * Severe abdominal pain or bloating * Pain not relieved by pain medicine ordered * There is increased drainage or redness from any incision * A large amount of rectal bleeding greater than 2-3 tablespoons. (If you had a polyp/s removed or have hemorrhoids, a small amount of blood - from the rectum is to be expected.) * You have any unanswered questions or concerns. IN THE EVENT OF A SERIOUS EMERGENCY, GO TO THE NEAREST EMERGENCY ROOM Your discharge instructions were prepared by provider Juan Carlos Miller. Patient Instructions Signature Page Joya Sosa Patient (or Guardian) Signature/Date: I have read and understand the instructions given to me by my caregivers. Caregiver/RN/Doctor Signature/Date: The above-named patient and/or guardian has received patient instructions on this date. + Original Patient Signature Page (only) stays with chart. Please make copy for patient.
--- NOTE | 2016-07-30 15:06 | GI REPORT ---
Procedure Date: 07/30/2016 2:38 PM Procedure: Upper GI endoscopy Indications: Iron deficiency anemia Medicines: Propofol total dose 220 mg IV, Lidocaine 40 mg IV Complications: No immediate complications. Estimated Blood Loss: Estimated blood loss: none. Procedure: Pre-Anesthesia Assessment: - Prior to the procedure, a History and Physical was performed, and patient medications, allergies and sensitivities were reviewed. The patient's tolerance of previous anesthesia was reviewed. - The risks and benefits of the procedure and the sedation options and risks were discussed with the patient. All questions were answered and informed consent was obtained. After obtaining informed consent, the endoscope was passed under direct vision. Throughout the procedure, the patient's blood pressure, pulse, and oxygen saturations were monitored continuously. The scope was introduced through the mouth, and advanced to the second part of duodenum. The upper GI endoscopy was accomplished without difficulty. The patient tolerated the procedure well. Findings: A widely patent Schatzki ring (acquired) was found at the gastroesophageal junction. No varices. A single 15 mm pedunculated polyp with no bleeding and stigmata of recent bleeding was found in the prepyloric region of the stomach. An endoloop was maneuvered over the polyp stalk and closed at the mucosal attachment prior to removal in order to prevent bleeding. Resection and retrieval were complete. Estimated blood loss: none. A single 10 mm semi-sessile polyp with no bleeding and no stigmata of recent bleeding was found in the prepyloric region of the stomach. The polyp was removed with a hot snare. Resection and retrieval were complete. Estimated blood loss: none. The examined duodenum was normal. Impression: - Widely patent Schatzki ring. - A single gastric polyp. Resected and retrieved. - A single gastric polyp. Resected and retrieved. - Normal examined duodenum. Recommendation: - [facility] for [facility] care. Juan Carlos Miller M.D. Juan Carlos Miller MD 07/30/2016 3:05:07 PM This report has been signed electronically. Note Initiated On: 07/30/2016 2:38 PM I attest to the content of the Intraoperative Record and orders documented therein, exceptions below
--- NOTE | 2016-07-30 15:11 | Anesthesiology Progress Note ---
Anesthesia Post Op Note Date & Time Jul 30, 2016 at 15:11 Vital Signs Pain Intensity: 0.0 Vital Signs Past 12 Hours Date Time Temp Pulse Resp B/P (MAP) Pulse Ox O2 Delivery O2 Flow Rate FiO2 07/30/16 15:10 69 20 94/43 (60) 94 Room Air 07/30/16 14:19 36.5 75 20 109/51 (70) 98 Room Air 07/30/16 11:45 Room Air 07/30/16 08:22 36.9 73 16 117/69 (85) 96 07/30/16 07:45 Room Air 07/30/16 04:45 37.0 74 18 102/60 07/30/16 04:00 Room Air 07/30/16 04:00 37.0 74 18 102/60 (74) 97 Room Air 07/30/16 03:45 36.8 69 18 93/57 07/30/16 03:15 37.1 72 20 121/69 Notes Mental Status: alert / awake / arousable, participated in evaluation Pt Amnestic to Procedure: Yes Nausea / Vomiting: adequately controlled Pain: adequately controlled Airway Patency, RR, SpO2: stable & adequate BP & HR: stable & adequate Hydration State: stable & adequate Anesthetic Complications: no major complications apparent Patient noted to have broken her front cap/veneer in recovery. Fragment was found and given to family. Anesthesia did not instrument the airway at any point in this case. Proceduralist is aware of tooth damage.
[2016-07-30] MEDS ORDERED: PROPOFOL IV EMULSION 10 MG/ML 20 ML VIAL IV ONE (15:12)
[2016-07-30] MEDS ORDERED: LIDOCAINE HCL 2% 2 ML VIAL (20MG/ML) ONE (15:12)
[2016-07-30 16:44] LABS: HEMATOCRIT 30.2 % (37-47)
[2016-07-30] MEDS: TRAMADOL HCL 50 MG TAB PO PRN ×2 (17:10→23:29)
--- NOTE | 2016-07-30 18:24 | Progress Note ---
Subjective Date of Service: Jul 30, 2016. Subjective Pt evaluation today including: conversation w/ patient, physical exam, chart review, lab review, review of inpatient medication list feeling better does note that she's fatigued but no other acute complaints no GI bleeding awaiting EGD at the time i saw her wants to go home, notes she's got supportive family Problem List Medical Problems: (1) Altered mental status Status: Acute (2) Fever Status: Acute (3) GI bleeding Status: Acute (4) Hypotension Status: Acute Review of Systems ROS otherwise negative except for as above Objective Vital Signs Date Time Temp Pulse Resp B/P (MAP) Pulse Ox O2 Delivery O2 Flow Rate FiO2 07/30/16 16:30 36.5 70 20 112/64 (80) 95 Room Air 07/30/16 15:34 71 20 91/55 (67) 96 Room Air 07/30/16 15:23 69 20 105/49 (67) 95 Room Air 07/30/16 15:14 70 20 97/38 (57) 95 Room Air 07/30/16 15:10 69 20 94/43 (60) 94 Room Air 07/30/16 14:19 36.5 75 20 109/51 (70) 98 Room Air 07/30/16 11:45 Room Air 07/30/16 08:22 36.9 73 16 117/69 (85) 96 07/30/16 07:45 Room Air 07/30/16 04:45 37.0 74 18 102/60 07/30/16 04:00 Room Air 07/30/16 04:00 37.0 74 18 102/60 (74) 97 Room Air 07/30/16 03:45 36.8 69 18 93/57 07/30/16 03:15 37.1 72 20 121/69 07/30/16 03:00 37.1 76 18 105/57 07/30/16 02:45 36.9 73 18 110/64 07/30/16 01:00 37.0 73 18 135/69 97 07/30/16 00:48 36.9 73 16 117/69 96 Room Air 07/30/16 00:01 37.0 75 20 95/58 97 07/30/16 00:01 37.0 75 18 95/58 (70) 97 Room Air 07/30/16 00:01 Room Air 07/29/16 23:30 37.1 70 18 98/56 97 07/29/16 23:00 37.1 74 20 111/71 98 07/29/16 22:45 37.4 73 20 94/63 98 07/29/16 22:31 36.9 71 20 112/60 98 07/29/16 20:03 37.2 105 18 101/60 (74) 90 Room Air 07/29/16 20:00 Room Air Physical Exam General Appearance: no apparent distress Eyes: EOMI ENT: hearing grossly normal Neck: trachea midline Respiratory/Chest: no respiratory distress, no accessory muscle use Abdomen: non tender, soft Extremities: normal range of motion Neurologic/Psychiatric: seafood packer II-XII nml as tested, alert, normal mood/affect Skin: normal color, warm/dry Laboratory Results Last 24 Hours Test 07/29/16 22:00 07/30/16 06:17 07/30/16 16:36 Hemoglobin 7.9 g/dL 9.5 g/dL 10.2 g/dL Hematocrit 23.5 % 28.1 % 30.2 % White Blood Count 9.38 K/uL Red Blood Count 3.36 M/uL Mean Corpuscular Volume 83.6 fL Mean Corpuscular Hemoglobin 28.3 pg Mean Corpuscular Hemoglobin Concent 33.8 g/dl Platelet Count 175 K/uL Mean Platelet Volume 9.4 fL Neutrophils (%) (Auto) 74.7 % Lymphocytes (%) (Auto) 7.1 % Monocytes (%) (Auto) 17.2 % Eosinophils (%) (Auto) 0.5 % Basophils (%) (Auto) 0.2 % Neutrophils # (Auto) 7.00 K/uL Lymphocytes # (Auto) 0.67 K/uL Monocytes # (Auto) 1.61 K/uL Eosinophils # (Auto) 0.05 K/uL Basophils # (Auto) 0.02 K/uL RDW Standard Deviation 51.6 fL RDW Coefficient of Variation 16.9 % Immature Granulocyte % (Auto) 0.3 % Immature Granulocyte # (Auto) 0.03 K/uL Sodium Level 136 mmol/L Potassium Level 3.1 mmol/L Chloride Level 103 mmol/L Carbon Dioxide Level 20 mmol/L Anion Gap 13.0 mmol/L Blood Urea Nitrogen 17 mg/dl Creatinine 1.30 mg/dl Est Creatinine Clear Calc Drug Dose 36.5 ml/min Estimated GFR () 47.1 Estimated GFR (Non- 40.7 BUN/Creatinine Ratio 13.1 Random Glucose 77 mg/dl Calcium Level 7.9 mg/dl Magnesium Level 2.1 mg/dl Assessment and Plan 71 y/o F admitted on July 282016 because of altered mental status, appearing to be hepatic encephalopathy hepatic encephalopathy -possibly precipitated by SBP -improved -continue rocephin - doing well; not enough ascites for tap, empiric abx to continue -continue home meds otherwise possible SBP / possible sepsis on admission -rocephin as above anemia -now sstable s/p transfusion -for EGD to ensure no UGI bleeding -continue to follow Hgb Cirrhosis - ESLD continue her home meds, follow hx of ETOH abuse - no s/s withdrawal DVT Proph - pharmacologic contraindicated due to anemia Discharge planning: home
[2016-07-31] VITALS (7 sets, daily range): BP systolic 101–105; BP diastolic 56–67; PULSE 67–75; TEMP 36.7–36.9; O2SAT 91–98
[2016-07-31] MEDS: SUCRALFATE 1 GM/10 ML UDC PO SCH ×2 (06:38→11:46)
[2016-07-31 06:54] LABS: BASO % 0.3 %; BASO ABS # 0.02 K/uL (0-0.2); COMPLETE YES; EOS % 2.9 %; IG% 0.3 %; LYMPH % 8.3 %; LYMPH ABS # 0.61 K/uL (1.2-3.4); MEAN CELL VOLUME 83.1 fL (80-100); MEAN CORPUSCULAR HGB CONC 33.7 g/dl (32-36); MEAN PLATELET VOLUME 9.2 fL (7.4-10.4); MONO % 17.9 %; NEUT % 70.3 %; PLATELET COUNT 177 K/uL (130-400); RED BLOOD COUNT 3.61 M/uL (4.2-5.4); WHITE BLOOD COUNT 7.32 K/uL (4.8-10.8)
[2016-07-31 07:28] LABS: BUN/CREATININE RATIO 15.5 (10-20); CALCIUM 7.8 mg/dl (8.5-10.1); CREATININE 1.1 mg/dl (0.60-1.20); POTASSIUM 2.7 mmol/L (3.5-5.1)
--- NOTE | 2016-07-31 08:10 | Clinical Documentation Query ---
CLINICAL DOCUMENTATION QUERY 71 year old female who presents to the Emergency Room with a persistent altered mental status. Since admission H/H has fallen significantly. In your clinical opinion is this patient being managed for: ( ) Acute blood loss anemia ( ) Other explanation of clinical findings (Please Explain) ( x ) Unable to determine (Please Define) - see notes, acute anemia, appears most c/w acute blood loss, but unclear ( ) Need to Discuss ( ) Not Agree The medical record reflects the following clinical findings, treatment, and risk factors. Clinical Indicators: H/H10.1/30.3--->6.9/20.5, Treatment: 2 units of PRBC's, GI consult, Risk Factors: Age, hx of esophageal varices and portal htn. Please clarify and document your clinical opinion in the progress notes and discharge summary. Terms such as "probable", "suspected", "likely", "questionable", "possible", or "still to be ruled out" are acceptable. IF IN AGREEMENT, YOU MUST DOCUMENT ABOVE DIAGNOSTIC STATEMENT IN DAILY PROGRESS NOTES AND DISCHARGE SUMMARY. This document is not part of the patient's record. Thank You, Felipe Valladares, RN [phone]
[2016-07-31] MEDS: RIFAXIMIN TAB 550 MG TAB PO SCH (08:43)
[2016-07-31] MEDS: PANTOprazole SOD 40 MG TAB PO SCH (08:43)
[2016-07-31] MEDS: FLUOXETINE HCL 10 MG CAP PO SCH (08:43)
[2016-07-31] MEDS: NADOLOL 40 MG TAB PO SCH (08:43)
[2016-07-31] MEDS: FERROUS SULFATE 325 MG TAB PO SCH (08:44)
[2016-07-31] MEDS: POTASSIUM CHLORIDE 10 MEQ TABCR PO SCH (08:44)
[2016-07-31] MEDS: THIAMINE HCL 100 MG TAB PO SCH (08:44)
[2016-07-31] MEDS: MAGNESIUM OXIDE 400 MG TAB PO SCH (08:44)
[2016-07-31] MEDS ORDERED: CPR500 PO (09:48)
--- NOTE | 2016-07-31 09:54 | Discharge Instructions ---
Discharge Instructions Date of Service Jul 31, 2016. Admission Reason for Admission: Fuo, Hepatic Encephalopathy Discharge Discharge Diagnosis / Problem: hepatic encephalopathy (liver toxin related confusion) Discharge Goals Goal(s): Diagnostic testing, Therapeutic intervention Activity Recommendations Activity Limitations: resume your previous activity . Instructions / Follow-Up Instructions / Follow-Up a) hepatic encephalopathy (liver toxin related confusion) -this got better fortunately very quickly - it appears there may have been a small amount of infection making things worse - you got better really quickly on antibiotics. there actually was not enough fluid in your belly to drawn any off for culture, but we'll finish out a course of antibiotics with three more days of cipro - 500mg twice a day - next dose tonight -cipro usually is pretty well tolerated, if you find that it upsets your stomach , take it with food -continue to follow up with Dr Maxwell and Dr Miller in regards to your liver disease, and don't drink any alcohol of any kind at all b) anemia -your blood counts dropped requiring a transfusion - this kind of drop almost has to be gastrointestinal blood loss, but fortunately by the time Dr Miller went in with a scope you did not show any active bleeding and your blood counts have been stable since the transfusion -continue to pay attention for any signs of bleeding (dark stool, black stool, bloody stool or vomitus) and we'll have labs checked again tomorrow to ensure no changes (lab slip enclosed) --> after tomorrow's labs, we'd recommend having blood counts checked again in about a week, then as directed by Dr Maxwell / Dr Miller after that c) low potassium -your potassium dropped fairly low again, this happens pretty commonly. we replaced it and we'll want you to eat a healthy diet within the limitations of what Dr Miller wants you to avoid in regards to your liver disease, and continue your regular potassium supplement -we'll have a potassium level checked again tomorrow so that if you need more potassium supplement, Dr Maxwell can order it for you Current Hospital Diet Patient's current hospital diet: Low Sodium Diet (2gm Na), Low Fiber Diet Discharge Diet Recommended Diet: Low Sodium Diet (2gm Na), Low Fiber Diet Procedures Procedures Performed: EGD with polypectomy and hemostasis Pending Studies Studies pending at discharge: no Medical Emergencies . Who to Call and When: Medical Emergencies: If at any time you feel your situation is an emergency, please call 911 immediately. . Non-Emergent Contact Non-Emergency issues call your: Primary Care Provider, Job Service Specialist . . "Provider Documentation" section prepared by Philip Harp. . VTE Core Measure Inpt VTE Proph given/why not?: SCD's
[2016-07-31] MEDS ORDERED: POTASSIUM CHLORIDE 10 MEQ TABCR PO ONE (10:00)
--- NOTE | 2016-07-31 13:14 | Discharge Summary ---
Discharge Summary Date of Service Jul 31, 2016. Discharge Summary Admission Date: Jul 28, 2016 at 23:18 Discharge Date: Jul 31, 2016 Discharge Disposition: Home with services Principal Diagnosis: multifactorial confusion see below Immunizations: Have You Had Influenza Vaccine: No History of Tetanus Vaccine?: No History of Pneumococcal: No History of Hepatitis B Vaccine: Yes Hepatitis Immunization Date: Nov 25, 2010 Procedures: DICTATED BY: Juan Carlos Miller M.D. Procedure Date: 07/30/2016 2:38 PM Procedure: Upper GI endoscopy Indications: Iron deficiency anemia Medicines: Propofol total dose 220 mg IV, Lidocaine 40 mg IV Complications: No immediate complications. Estimated Blood Loss: Estimated blood loss: none. Procedure: Pre-Anesthesia Assessment: - Prior to the procedure, a History and Physical was performed, and patient medications, allergies and sensitivities were reviewed. The patient's tolerance of previous anesthesia was reviewed. - The risks and benefits of the procedure and the sedation options and risks were discussed with the patient. All questions were answered and informed consent was obtained. After obtaining informed consent, the endoscope was passed under direct vision. Throughout the procedure, the patient's blood pressure, pulse, and oxygen saturations were monitored continuously. The scope was introduced through the mouth, and advanced to the second part of duodenum. The upper GI endoscopy was accomplished without difficulty. The patient tolerated the procedure well. Findings: A widely patent Schatzki ring (acquired) was found at the gastroesophageal junction. No varices. A single 15 mm pedunculated polyp with no bleeding and stigmata of recent bleeding was found in the prepyloric region of the stomach. An endoloop was maneuvered over the polyp stalk and closed at the mucosal attachment prior to removal in order to prevent bleeding. Resection and retrieval were complete. Estimated blood loss: none. A single 10 mm semi-sessile polyp with no bleeding and no stigmata of recent bleeding was found in the prepyloric region of the stomach. The polyp was removed with a hot snare. Resection and retrieval were complete. Estimated blood loss: none. The examined duodenum was normal. Impression: - Widely patent Schatzki ring. - A single gastric polyp. Resected and retrieved. - A single gastric polyp. Resected and retrieved. - Normal examined duodenum. Recommendation: - [facility] care. Juan Carlos Miller M.D. Last Resulted CBC 07/31/16 06:10 Red Blood Count 3.61, Mean Corpuscular Volume 83.1, Mean Corpuscular Hemoglobin 28.0, Mean Corpuscular Hemoglobin Concent 33.7, Mean Platelet Volume 9.2, Neutrophils (%) (Auto) 70.3, Lymphocytes (%) (Auto) 8.3, Monocytes (%) (Auto) 17.9, Eosinophils (%) (Auto) 2.9, Basophils (%) (Auto) 0.3, Neutrophils # (Auto ) 5.15, Lymphocytes # (Auto) 0.61, Monocytes # (Auto) 1.31, Eosinophils # (Auto ) 0.21, Basophils # (Auto) 0.02 Last Resulted BMP 07/31/16 06:10 Medication Reconciliation New Medications: Ciprofloxacin (Ciprofloxacin HCl) 500 Mg Tab 1 TAB PO BID, #6 TAB Continued Medications: Ascorbic Acid (Vitamin C) 500 Mg Cap 500 MG PO DAILY Ferrous Sulfate (Ferrous Sulfate) 325 Mg Tab 325 MG PO Q2D Fluoxetine (Prozac) 10 Mg Cap 10 MG PO QAM Folic Acid (Folic Acid) 1 Mg Tab 1 MG PO QAM Furosemide (Lasix) 20 Mg Tab 80 MG PO DAILY, TAB TAKE FOUR 20MG TABLETS Lactulose (Chronulac) 10 Gm/15 Ml Syrp 20 GM PO HS PRN for Constipation Magnesium Oxide (Mag-Ox) 400 Mg Tab 400 MG PO BID, TAB Milk Thistle (Silybum Marianum (Milk Thistle) 500 Mg Cap 1 CAP PO DAILY Multiple Vitamins W/ Minerals (Centrum Silver) 1 Chw Chw 1 TAB PO DAILY Nadolol (Corgard) 20 Mg Tab 10 MG PO DAILY, TAB TAKE HALF OF A 20MG TABLET Ondansetron Hcl (Zofran) 4 Mg Tab 4 MG PO DAILY PRN for Nausea, TAB Pantoprazole (Protonix) 40 Mg Tab 40 MG PO BID Potassium Chloride (Micro-K Ext Rel) 10 Meq Capcr 10 MEQ PO DAILY, CAP Rifaximin (Xifaxan) 550 Mg Tab 550 MG PO BID, TAB Spironolactone (Aldactone) 100 Mg Tab 200 MG PO DAILY, TAB TAKE TWO 100MG TABLETS Sucralfate (Carafate) 1 Gm/10 Ml Sherin 1 GM PO QID Thiamine Hcl (Vitamin B-1) 100 Mg Tab 100 MG PO QAM, TAB Tramadol (Ultram) 50 Mg Tab 50 MG PO TID PRN for Pain Discharge Exam Physical Exam: General Appearance: no apparent distress Eyes: EOMI Respiratory/Chest: no respiratory distress, no accessory muscle use Extremities: normal inspection Neurologic/Psychiatric: svp marketing II-XII nml as tested, alert Skin: normal color, warm/dry Hospital Course 71 y/o F admitted on July 282016 because of altered mental status, appearing to be hepatic encephalopathy hepatic encephalopathy -possibly precipitated by SBP -improved -was on rocephin while inpatient, and while not entirely clear - infection certainly could precipitate encephalopathy and she did improve on abx - will finish course w cipro -continue home meds otherwise possible SBP / possible sepsis on admission -rocephin --> cipro as above anemia -now stable s/p transfusion x 2 days -had EGD to ensure no UGI bleeding - se above -continue to follow Hgb as outpt hypokalemia -replaced prior to discharge, repeat labs as outpt tomorrow Cirrhosis - ESLD continue her home meds, follow hx of ETOH abuse - no s/s withdrawal DVT Proph - pharmacologic contraindicated due to anemia Total Time Spent: Less than 30 minutes This includes examination of the patient, discharge planning, medication reconciliation, and communication with other providers. Discharge Instructions Please refer to the electronic Patient Visit Report (Discharge Instructions) for additional information. Additional Copies To Juan Carlos Miller M.D.; Celestine Maxwell M.D.
[2016-07-31] MEDS: TRAMADOL HCL 50 MG TAB PO PRN (13:24)
== END 2016-07-31 13:52 | disposition home health service (06) | DRG 871 ==
LOC: EDBD 19:15 → C.EDA 19:15 → CANRESERV 23:05 → ENRESERV 23:05 → C.MED 23:18 → CANBEDREQ 23:20 → ENRESERV 23:31
PROVIDERS: ADMIT Internal Medicine; ATTEND Family Medicine
PROC: 0DB68ZX Excision of Stomach, Via Natural or Artificial Opening Endoscopic, Diagnostic (ICD-10-PCS; principal; 2016-07-30 15:00)
DX: A41.9 Sepsis, unspecified organism (principal); K65.2 Spontaneous bacterial peritonitis; I85.00 Esophageal varices without bleeding; R18.8 Other ascites; D62 Acute posthemorrhagic anemia; K70.40 Alcoholic hepatic failure without coma; R50.9 Fever, unspecified; E87.6 Hypokalemia; K74.60 Unspecified cirrhosis of liver; K72.90 Hepatic failure, unspecified without coma; F10.21 Alcohol dependence, in remission; Z83.3 Family history of diabetes mellitus; Z82.49 Family history of ischemic heart disease and other diseases of the circulatory system

== ENCOUNTER 2017-03-10 23:20 | Inpatient (IN) | payer BC, OTHER ==
[~2017-03-10] VITALS: Ht 157.5 cm; Wt 81.8 kg
[~2017-03-10 23:20] MED LIST changes: +CPR500 PO; +FLUO10CA48 PO; -OXYC1TAB3 PO; +TRAM-10 PO
[2017-03-10] MEDS ORDERED: SODIUM CHLORIDE 0.9% 500ML 500 ML IV STA (23:34)
[2017-03-10 23:45] LABS: BASO % 0.1 %; BASO ABS # 0.01 K/uL (0-0.2); EOS % 1.3 %; EOS ABS # 0.13 K/uL (0-0.5); HEMATOCRIT 27.1 % (37-47); HEMOGLOBIN 9.3 g/dL (12.0-16.0); IG# 0.04 K/uL (0.00-0.02); LYMPH % 9.2 %; LYMPH ABS # 0.91 K/uL (1.2-3.4); MEAN CELL VOLUME 77.9 fL (80-100); MEAN CORPUSCULAR HEMOGLOBIN 26.7 pg (25-34); MEAN CORPUSCULAR HGB CONC 34.3 g/dl (32-36); MEAN PLATELET VOLUME 9.9 fL (7.4-10.4); MONO ABS # 1.68 K/uL (0.11-0.59); NEUT ABS # 7.12 K/uL (1.4-6.5); PLATELET COUNT 220 K/uL (130-400); RED CELL DISTRIBUTION WIDTH CV 19.7 % (11.5-14.5); RED CELL DISTRIBUTION WIDTH SD 56.1 fL (36.4-46.3); WHITE BLOOD COUNT 9.89 K/uL (4.8-10.8)
[2017-03-10] MEDS ORDERED: SPIR50TA2 PO (23:46)
[2017-03-10] MEDS ORDERED: OXYC1TAB3 PO (23:50)
[2017-03-11] VITALS (9 sets, daily range): BP systolic 73–123; BP diastolic 47–69; PULSE 71–78; TEMP 36.2–36.7; O2SAT 94–100; Ht 157.5 cm; Wt 81.8 kg
[2017-03-11 00:07] LABS: ALBUMIN 1.6 gm/dl (3.4-5.0); ALT/SGPT 29 U/L (12-78); AST/SGOT 113 U/L (15-37); BLOOD UREA NITROGEN 20 mg/dl (7-18); CALCIUM 7.6 mg/dl (8.5-10.1); CARBON DIOXIDE 24 mmol/L (21-32); GLUCOSE 105 mg/dl (70-99); LIPASE 125 U/L (73-393); POTASSIUM 4.1 mmol/L (3.5-5.1); SODIUM 133 mmol/L (136-145)
[2017-03-11 00:18] LABS: ALKALINE PHOSPHATASE 144 U/L (45-117); CKMB 0.7 ng/ml (0.5-3.6); TOTAL PROTEIN 5.9 gm/dl (6.4-8.2)
[2017-03-11] MEDS ORDERED: SODIUM CHLORIDE 0.9% 1000ML 1,000 ML IV STA (01:12)
--- NOTE | 2017-03-11 01:29 | EMERGENCY ROOM VISIT NOTE ---
History Report prepared by Lisa: Rosendo Rich Under the Supervision of: Dr. Lety Grijalva D.O. First contact with patient: 23:21 Chief Complaint: ALTERED MENTAL STATUS Stated Complaint: ALTERED MENTAL STATUS History of Present Illness The patient is a 72 year old female who presents to the Emergency Room by EMS with complaints of worsening altered mental status. Per EMS, the patient's family reports the patient became increasingly confused three days ago. They report that the patient was slurring her speech as well. EMS notes that the patient was recently taken off Lasix. They state that the patient appears to have some abdominal distension. The patient has a history of TIA, and cirrhosis of the liver (secondary to alcoholism). She is seen by a home insurance agent daily. She states that she has been eating and drinking normally. The patient currently complains of lower abdominal pain. EMS states that the patient has had difficulty swallowing, which is thought to be related to dehydration. Per daughter, the patient has around the clock care at home. She notes that the patient was doing well until around [place] with her physical therapy, but has had an overall decline since then. She states that the patient has not been eating or drinking much recently. The patient's daughter states that the patient has had about one bowel movement per day. She states that the patient has had increased hallucinations, seeing "chickens flying", "Indians", and "monsters". She notes that the patient's GI doctor (Dr. Miller) recommended that the patient be placed on hospice, but the patient refused. HPI limited secondary to AMS. Source of History: patient, EMS History Limited By: AMS Onset: Three days ago Quality: other (altered mental status) Timing: worsening Associated Symptoms: + abdominal pain (lower) Note: Additional symptoms: abdominal distension and slurred speech. Review of Systems ROS limited secondary to altered mental status. Past Medical & Surgical Medical Problems: (1) Alcoholic cirrhosis of liver (2) FUO (fever of unknown origin) (3) FUO (fever of unknown origin) (4) History of alcohol abuse (5) Hypertension (6) Peptic ulcer disease (7) Umbilical hernia Surgical Problems: (1) History of esophagogastroduodenoscopy (2) History of hysterectomy (3) Incarcerated hernia Family History Cancer Diabetes mellitus FH: heart disease FATHER Hypertension Social History Smoking Status: Unknown if Ever Smoked Alcohol Use: heavy, other Drug Use: none Marital Status: Housing Status: lives alone Occupation Status: retired Current/Historical Medications Scheduled Ascorbic Acid (Vitamin C), 500 MG PO DAILY Ferrous Sulfate (Ferrous Sulfate), 325 MG PO Q2D Fluoxetine (Prozac), 10 MG PO QAM Folic Acid (Folic Acid), 1 MG PO QAM Furosemide (Lasix), 80 MG PO DAILY Magnesium Oxide (Mag-Ox), 400 MG PO BID Milk Thistle (Silybum Marianum (Milk Thistle), 1 CAP PO DAILY Multiple Vitamins W/ Minerals (Centrum Silver), 1 TAB PO DAILY Nadolol (Corgard), 10 MG PO DAILY Pantoprazole (Protonix), 40 MG PO BID Potassium Chloride (Micro-K Ext Rel), 10 MEQ PO DAILY Rifaximin (Xifaxan), 550 MG PO BID Spironolactone (Aldactone), 200 MG PO DAILY Sucralfate (Carafate), 1 GM PO QID Thiamine Hcl (Vitamin B-1), 100 MG PO QAM Scheduled PRN Lactulose (Chronulac), 20 GM PO QAM PRN for Constipation Ondansetron Hcl (Zofran), 4 MG PO DAILY PRN for Nausea Oxycodone Ir (Roxicodone Ir), 5 MG PO Q6H PRN for Pain Tramadol (Ultram), 50 MG PO TID PRN for Pain Allergies Coded Allergies: Guaifenesin (Verified Allergy, Unknown, Unknown, 03/10/17) Morphine (Verified Allergy, Unknown, kidney failure, 03/10/17) Dextromethorphan (Verified Adverse Reaction, Intermediate, PALPITATIONS, ) Doxylamine (Verified Adverse Reaction, Intermediate, PALPITATIONS, 03/10/17 ) Pseudoephedrine (Verified Adverse Reaction, Intermediate, PALPITATIONS, ) Iodinated Diagnostic Agents (Verified Adverse Reaction, Unknown, KIDNEY PROBLEMS WITH CONTRAST DYE, 03/10/17) Physical Exam Vital Signs Date Time Temp Pulse Resp B/P (MAP) Pulse Ox O2 Delivery O2 Flow Rate FiO2 03/11/17 01:35 78 19 98 03/11/17 01:30 123/59 03/11/17 01:22 79 16 106/63 99 Room Air 03/11/17 01:20 79 15 98 03/11/17 01:05 78 26 97 03/11/17 01:00 106/63 03/11/17 00:50 78 23 98 03/11/17 00:35 76 20 98 03/11/17 00:30 107/64 03/11/17 00:20 77 22 98 03/11/17 00:05 78 28 98 03/11/17 00:00 79 25 117/62 97 03/10/17 23:59 116/61 03/10/17 23:55 79 19 98 03/10/17 23:42 78 03/10/17 23:40 79 21 98 03/10/17 23:30 80 20 98 Room Air 03/10/17 23:29 36.7 80 18 113/65 98 Room Air 03/10/17 23:28 113/65 Physical Exam HEENT: Head - normocephalic and atraumatic Pupils are equal, round, and reactive to light. Extraocular eye muscles are intact, and sclera are anicteric. Nose - moist nasal mucosa without discharge. Mouth - dry buccal mucosa. Lips are cracked and dried. Oropharynx is nonerythematous and there is no tonsillar exudate or edema noted. Neck: Supple; no JVD, nuchal rigidity, cervical lymphadenopathy. Heart: Regular rate and rhythm. There is a normal S1 and S2 with no murmurs, clicks, or gallops appreciated. Lungs: Diminished breath sounds in all lung marsh. Abdomen: Distended, slightly tender in the lower abdomen with palpation, good bowel sounds. There are no palpable pulsatile masses or hepatosplenomegaly. There is no guarding, rigidity, or rebound noted. Extremities: No evidence of cyanosis, clubbing, or edema. There are easily palpable peripheral pulses. Skin: Jaundiced. Warm and dry with good turgor and no rashes. Medical Decision & Procedures Laboratory Results 03/10/17 23:30 Red Blood Count 3.48, Mean Corpuscular Volume 77.9, Mean Corpuscular Hemoglobin 26.7, Mean Corpuscular Hemoglobin Concent 34.3, Mean Platelet Volume 9.9, Neutrophils (%) (Auto) 72.0, Lymphocytes (%) (Auto) 9.2, Monocytes (%) (Auto) 17.0, Eosinophils (%) (Auto) 1.3, Basophils (%) (Auto) 0.1, Neutrophils # (Auto ) 7.12, Lymphocytes # (Auto) 0.91, Monocytes # (Auto) 1.68, Eosinophils # (Auto ) 0.13, Basophils # (Auto) 0.01 03/10/17 23:30 Test 03/10/17 23:30 03/10/17 23:31 03/10/17 23:55 White Blood Count 9.89 K/uL (4.8-10.8) Red Blood Count 3.48 M/uL (4.2-5.4) Hemoglobin 9.3 g/dL (12.0-16.0) Hematocrit 27.1 % (37-47) Mean Corpuscular Volume 77.9 fL (80-100) Mean Corpuscular Hemoglobin 26.7 pg (25-34) Mean Corpuscular Hemoglobin Concent 34.3 g/dl (32-36) Platelet Count 220 K/uL (130-400) Mean Platelet Volume 9.9 fL (7.4-10.4) Neutrophils (%) (Auto) 72.0 % Lymphocytes (%) (Auto) 9.2 % Monocytes (%) (Auto) 17.0 % Eosinophils (%) (Auto) 1.3 % Basophils (%) (Auto) 0.1 % Neutrophils # (Auto) 7.12 K/uL (1.4-6.5) Lymphocytes # (Auto) 0.91 K/uL (1.2-3.4) Monocytes # (Auto) 1.68 K/uL (0.11-0.59) Eosinophils # (Auto) 0.13 K/uL (0-0.5) Basophils # (Auto) 0.01 K/uL (0-0.2) RDW Standard Deviation 56.1 fL (36.4-46.3) RDW Coefficient of Variation 19.7 % (11.5-14.5) Immature Granulocyte % (Auto) 0.4 % Immature Granulocyte # (Auto) 0.04 K/uL (0.00-0.02) Prothrombin Time 14.9 SECONDS (9.0-12.0) Prothromb Time International Ratio 1.4 (0.9-1.1) Activated Partial Thromboplast Time 32.6 SECONDS (21.0-31.0) Partial Thromboplastin Ratio 1.3 Anion Gap 8.0 mmol/L (3-11) Est Creatinine Clear Calc Drug Dose 30.6 ml/min Estimated GFR () 36.4 Estimated GFR (Non- 31.4 BUN/Creatinine Ratio 12.6 (10-20) Calcium Level 7.6 mg/dl (8.5-10.1) Total Bilirubin 2.3 mg/dl (0.2-1) Direct Bilirubin 1.6 mg/dl (0-0.2) Aspartate Amino Transf (AST/SGOT) 113 U/L (15-37) Alanine Aminotransferase (ALT/SGPT) 29 U/L (12-78) Alkaline Phosphatase 144 U/L (45-117) Total Creatine Kinase 30 U/L (26-192) Creatine Kinase MB 0.7 ng/ml (0.5-3.6) Creatine Kinase MB Ratio 2.3 (0-3.0) Troponin I < 0.015 ng/ml (0-0.045) Total Protein 5.9 gm/dl (6.4-8.2) Albumin 1.6 gm/dl (3.4-5.0) Lipase 125 U/L (73-393) Thyroid Stimulating Hormone (TSH) 3.490 uIu/ml (0.300-4.500) Ammonia 42.0 umol/L (11-32) Urine Color ORANGE Urine Appearance CLEAR (CLEAR) Urine pH 5.0 (4.5-7.5) Urine Specific [place] 1.025 (1.000-1.030) Urine Protein NEG (NEG) Urine Glucose (UA) NEG (NEG) Urine Ketones TRACE (NEG) Urine Occult Blood NEG (NEG) Urine Nitrite (NEG) Urine Bilirubin 1+ (NEG) Urine Urobilinogen NEG (NEG) Urine Leukocyte Esterase SMALL (NEG) Urine WBC (Auto) 5-10 /hpf (0-5) Urine RBC (Auto) 0-4 /hpf (0-4) Urine Hyaline Casts (Auto) 10-30 /lpf (0-5) Urine Epithelial Cells (Auto) >30 /lpf (0-5) Urine Bacteria (Auto) NEG (NEG) Urine Renal Epithelial Cells /lpf (0-5) Urine Pathogenic Casts /lpf (0) Urine Yeast (Auto) BUD W/ HYPHAE (NONE PRSENT) Laboratory results per my review. Medications Administered Medications (Trade) Dose Ordered Sig/Nael Route Start Time Stop Time Status Last Admin Dose Admin Sodium Chloride 500 ml @ 999 mls/hr Q31M STAT IV 03/10/17 23:34 03/11/17 00:04 DC 03/10/17 23:45 999 MLS/HR Sodium Chloride 1,000 ml @ 250 mls/hr Q4H STAT IV 03/11/17 01:12 03/11/17 05:11 03/11/17 01:22 250 MLS/HR Procedure IV normal saline hydration ECG Indication: altered mental status Rate (beats per minute): 79 Rhythm: normal sinus Findings: no acute ischemic change, no ectopy ED Course 2322: Past medical records reviewed. The patient was evaluated in room B6. A complete history and physical exam was performed. An IV lock was initiated and labs are drawn as above. I discussed the case with the patient's sister who was able to provide more history. 2334: Ordered Sodium Chloride 500 ml @ 999 mls/hr IV. 0112: Ordered Sodium Chloride 1000 ml @ 250 mls/hr IV. 0115: Upon reevaluation, I discussed findings and results with the patient And her sisters who are at the bedside . She verbalized agreement of the treatment plan. I spoke with Dr. Chavira of the [facility] Hospitalist Service. The patient will be evaluated for further management and care. Medical Decision The patient is a 72 year old female who presents to the ED with altered mental status. Differential diagnosis includes SBP, dehydration, hepatic encephalopathy , hypoglycemia, and hyperglycemia. Laboratory results: No leukocytosis, hemoglobin of 9.3 (baseline for her), ammonia level of 42. BUN of 20. Creatinine of 1.6. Sodium of 133. Total bilirubin of 2.3. Direct bilirubin of 1.6. AST of 113. Normal TSH. Urine shows trace ketones, 5-10 WBC, and small leukocyte esterase. This is a 72-year-old female patient with a history of alcoholic is presents to the emergency department with worsening mental status. On physical exam, the patient appears extremely dehydrated. She is confused. Laboratory studies confirm the dehydration. Ammonia level and LFTs are increased consistent with hepatic encephalopathy. The patient does have some ascites with suprapubic abdominal pain. Urinalysis reveals no obvious signs of infection. This will be sent for culture. I do not suspect subacute pectoral peritonitis as the patient has no significant leukocytosis or fever. I discussed the case with the [facility] hospitalist and they will evaluate for further management. Medication Reconcilliation Current Medication List: was personally reviewed by me Blood Pressure Screening Patient's blood pressure: Normal blood pressure Blood pressure disposition: Did not require urgent referral Consults Time Called: 011 Consulting Physician: Dr. Fan MCGEE Hospitalist Returned Call: [phone] Discussed the patient's case. The patient will be evaluated for further management. Impression Primary Impression: Hepatic encephalopathy Additional Impression: Dehydration Scribe Attestation The scribe's documentation has been prepared under my direction and personally reviewed by me in its entirety. I confirm that the note above accurately reflects all work, treatment, procedures, and medical decision making performed by me. Departure Information Dispostion Being Evaluated By Hospitalist Referrals Celestine Maxwell M.D. (PCP) Patient Instructions My [facility] Health Problem Qualifiers
[2017-03-11 01:39] LABS: INR 1.4 (0.9-1.1); PTT PATIENT 32.6 SECONDS (21.0-31.0)
--- NOTE | 2017-03-11 01:51 | History and Physical ---
History & Physical Date & Time of Service: Mar 11, 2017 at 01:26 Chief Complaint: Altered Mental Status Primary Care Physician: Celestine Maxwell M.D. History of Present Illness Source: patient, family 71 y/o F Hx end-stage liver disease, recurrent ascites and hepatic encephalopathy. The pt recently D/Cd daily diuretics due to hypotensive episodes. She presents with increasing abdominal girth and discomfort, poor PO intake, weakness and lethargy. She has difficulty with getting up and ambulating due to abdominal distention. She had recently been advised on hospice care by her primary MD but has thus far refused. She denies fevers, severe abdominal pain, nausea, vomiting or diarrhea. Per family, she is mentating poorly compared to her baseline. Past Medical/Surgical History Medical Problems: 1) Alcoholic cirrhosis of liver 2) History of alcohol abuse 3) Hypertension 4) Peptic ulcer disease 5) Umbilical hernia Surgical: 1) EGD 08/04 - No varices, Schatzkis ring, Gastric polyp. 2) Hysterectomy 3) Incarcerated hernia Family History Cancer Diabetes mellitus FH: heart disease FATHER Hypertension Social History Smoking Status: Never Smoker Drug Use: none Marital Status: Housing status: lives alone Occupational Status: retired Immunizations History of Influenza Vaccine: No History of Tetanus Vaccine?: No History of Pneumococcal: No History of Hepatitis B Vaccine: Yes Hepatitis Immunization Date: Nov 25, 2010 Multi-Drug Resistant Organisms History of MDRO: No Allergies Coded Allergies: Guaifenesin (Verified Allergy, Unknown, Unknown, 03/10/17) Morphine (Verified Allergy, Unknown, kidney failure, 03/10/17) Dextromethorphan (Verified Adverse Reaction, Intermediate, PALPITATIONS, ) Doxylamine (Verified Adverse Reaction, Intermediate, PALPITATIONS, 03/10/17 ) Pseudoephedrine (Verified Adverse Reaction, Intermediate, PALPITATIONS, ) Iodinated Diagnostic Agents (Verified Adverse Reaction, Unknown, KIDNEY PROBLEMS WITH CONTRAST DYE, 03/10/17) Home Medications Scheduled Ascorbic Acid (Vitamin C), 500 MG PO DAILY Ferrous Sulfate (Ferrous Sulfate), 325 MG PO Q2D Fluoxetine (Prozac), 10 MG PO QAM Folic Acid (Folic Acid), 1 MG PO QAM Furosemide (Lasix), 80 MG PO DAILY Magnesium Oxide (Mag-Ox), 400 MG PO BID Milk Thistle (Silybum [place] (Milk Thistle), 1 CAP PO DAILY Multiple Vitamins W/ Minerals (Centrum Silver), 1 TAB PO DAILY Nadolol (Corgard), 10 MG PO DAILY Pantoprazole (Protonix), 40 MG PO BID Potassium Chloride (Micro-K Ext Rel), 10 MEQ PO DAILY Rifaximin (Xifaxan), 550 MG PO BID Spironolactone (Aldactone), 200 MG PO DAILY Sucralfate (Carafate), 1 GM PO QID Thiamine Hcl (Vitamin B-1), 100 MG PO QAM Scheduled PRN Lactulose (Chronulac), 20 GM PO QAM PRN for Constipation Ondansetron Hcl (Zofran), 4 MG PO DAILY PRN for Nausea Oxycodone Ir (Roxicodone Ir), 5 MG PO Q6H PRN for Pain Tramadol (Ultram), 50 MG PO TID PRN for Pain Review of Systems Constitutional: + weakness, No fever, No chills, No sweats Eyes: No worsening of vision ENT: No hearing loss, No nasal symptoms Respiratory: No cough, No wheezing Cardiovascular: No chest pain, No PND Abdomen: + problem reported (Distention and discomfort - poor PO intake), No pain, No nausea Musculoskeletal: No joint pain Genitourinary - Female: No dysuria, No urinary frequency Neurologic: + weakness, + problem reported (Altered mentation) Psychiatric: No depression symptoms Endocrine: + fatigue Hematologic / Lymphatic: No abnormal bleeding/bruising Integumentary: No rash Allergic / Immunologic: No environmental allergies Physical Exam Vital Signs Date Time Temp Pulse Resp B/P (MAP) Pulse Ox O2 Delivery O2 Flow Rate FiO2 03/11/17 01:22 79 16 106/63 99 Room Air 03/11/17 00:00 79 25 117/62 97 03/10/17 23:59 116/61 03/10/17 23:55 79 19 98 03/10/17 23:42 78 03/10/17 23:40 79 21 98 03/10/17 23:30 80 20 98 Room Air 03/10/17 23:29 36.7 80 18 113/65 98 Room Air 03/10/17 23:28 113/65 General Appearance: WD/WN, no apparent distress, + pertinent finding (Lethargic , elderly female) Head: normocephalic Eyes: normal inspection ENT: normal ENT inspection, pharynx normal Neck: supple, no JVD Respiratory/Chest: chest non-tender, lungs clear, normal breath sounds Cardiovascular: regular rate, rhythm, normal peripheral pulses Abdomen/GI: + pertinent finding (Markedly distended abdomen - mild tenderness to palpation without gurading or rebound) Back: normal inspection, no CVA tenderness Neurologic/Psych: news video editor II-XII nml as tested, no motor/sensory deficits, alert Skin: normal color, warm/dry, no rash Diagnostics Laboratory Results Results Past 24 Hours Test 03/10/17 23:30 03/10/17 23:31 03/10/17 23:55 Range/Units White Blood Count 9.89 4.8-10.8 K/uL Red Blood Count 3.48 4.2-5.4 M/uL Hemoglobin 9.3 12.0-16.0 g/dL Hematocrit 27.1 37-47 % Mean Corpuscular Volume 77.9 80-100 fL Mean Corpuscular Hemoglobin 26.7 25-34 pg Mean Corpuscular Hemoglobin Concent 34.3 32-36 g/dl Platelet Count 220 130-400 K/uL Mean Platelet Volume 9.9 7.4-10.4 fL Neutrophils (%) (Auto) 72.0 % Lymphocytes (%) (Auto) 9.2 % Monocytes (%) (Auto) 17.0 % Eosinophils (%) (Auto) 1.3 % Basophils (%) (Auto) 0.1 % Neutrophils # (Auto) 7.12 1.4-6.5 K/uL Lymphocytes # (Auto) 0.91 1.2-3.4 K/uL Monocytes # (Auto) 1.68 0.11-0.59 K/uL Eosinophils # (Auto) 0.13 0-0.5 K/uL Basophils # (Auto) 0.01 0-0.2 K/uL RDW Standard Deviation 56.1 36.4-46.3 fL RDW Coefficient of Variation 19.7 11.5-14.5 % Immature Granulocyte % (Auto) 0.4 % Immature Granulocyte # (Auto) 0.04 0.00-0.02 K/uL Sodium Level 133 136-145 mmol/L Potassium Level 4.1 3.5-5.1 mmol/L Chloride Level 101 98-107 mmol/L Carbon Dioxide Level 24 21-32 mmol/L Anion Gap 8.0 3-11 mmol/L Blood Urea Nitrogen 20 7-18 mg/dl Creatinine 1.60 0.60-1.20 mg/dl Est Creatinine Clear Calc Drug Dose 30.6 ml/min Estimated GFR () 36.4 Estimated GFR (Non- 31.4 BUN/Creatinine Ratio 12.6 10-20 Random Glucose 105 70-99 mg/dl Calcium Level 7.6 8.5-10.1 mg/dl Total Bilirubin 2.3 0.2-1 mg/dl Direct Bilirubin 1.6 0-0.2 mg/dl Aspartate Amino Transf (AST/SGOT) 113 15-37 U/L Alanine Aminotransferase (ALT/SGPT) 29 12-78 U/L Alkaline Phosphatase 144 45-117 U/L Total Creatine Kinase 30 26-192 U/L Creatine Kinase MB 0.7 0.5-3.6 ng/ml Creatine Kinase MB Ratio 2.3 0-3.0 Troponin I < 0.015 0-0.045 ng/ml Total Protein 5.9 6.4-8.2 gm/dl Albumin 1.6 3.4-5.0 gm/dl Lipase 125 73-393 U/L Thyroid Stimulating Hormone (TSH) 3.490 0.300-4.500 uIu/ml Ammonia 42.0 11-32 umol/L Urine Color ORANGE Urine Appearance CLEAR CLEAR Urine pH 5.0 4.5-7.5 Urine Specific [place] 1.025 1.000-1.030 Urine Protein NEG NEG Urine Glucose (UA) NEG NEG Urine Ketones TRACE NEG Urine Occult Blood NEG NEG Urine Nitrite NEG Urine Bilirubin 1+ NEG Urine Urobilinogen NEG NEG Urine Leukocyte Esterase SMALL NEG Urine WBC (Auto) 5-10 0-5 /hpf Urine RBC (Auto) 0-4 0-4 /hpf Urine Hyaline Casts (Auto) 10-30 0-5 /lpf Urine Epithelial Cells (Auto) >30 0-5 /lpf Urine Bacteria (Auto) NEG NEG Urine Renal Epithelial Cells 0-5 /lpf Urine Pathogenic Casts 0 /lpf Urine Yeast (Auto) BUD W/ HYPHAE NONE PRSENT Diagnostic Radiology CT abdomen 08/04 1. Cirrhosis with manifestations of portal hypertension including a small amount of ascites and extensive varices. 2. Mild wall thickening of the ascending colon. This is likely related to portal hypertension although a nonspecific colitis could appear similar. 3. Suboptimal evaluation of the abdomen and pelvis given lack of contrast on this exam. 4. Cholelithiasis. 5. No bowel obstruction. 6. Several ventral hernias, as described above. Impression Assessment and Plan 71 y/o F Hx end-stage liver disease, recurrent ascites and hepatic encephalopathy. The pt recently D/Cd daily diuretics due to hypotensive episodes. She presents with increasing abdominal girth and discomfort, poor PO intake, weakness and lethargy. She has difficulty with getting up and ambulating due to abdominal distention. She had recently been advised on hospice care by her primary MD but has thus far refused. She denies fevers, severe abdominal pain, nausea, vomiting or diarrhea. Per family, she is mentating poorly compared to her baseline. 1) Cirrhosis - ascites and encephalopathy - we will arrange for AM therapeutic paracentesis. If she cannot tolerate diuretics going forward, then scheduled drainage should be considered. We will provide lactulose to ameliorate her encephalopathy. She will remain on Xifaxin and Nadolol Long-term goals of care should be addressed with family prior to DC as she may need placement or may ultimately request hospice care. 2) Severe protein malnutrition is noted on labs. Unlikely that this can be easily corrected. PO intake should increase with drainage of ascites. A dietary plan should be addressed prior to DC. 3) Pt appears intravascularly depleted at time of admission - mild BRADY is present on labs - likely due to poor intake. She received a litre of fluids in the ER - we would schedule additional as needed following paracentesis. Trend BMP as needed if full treatment is maintained. Full code - SCDs due to bleeding risk Total time for this admit including review of labs, meds, records - discussion with pt, daughter, ER attending - 40 min Level of Care Med/Surg Resuscitation Status FULL RESUSCITATION VTE Prophylaxis Given or contraindicated: SCD's
[2017-03-11] MEDS ORDERED: MAGNESIUM HYDROXIDE SUSP 30 ML UDC PO PRN (02:15)
[2017-03-11] MEDS ORDERED: ALUMINUM/MAGNESIUM/SIMETH (MAALOX MAX) 30 ML UDC PO PRN (02:15)
[2017-03-11] MEDS ORDERED: ONDANSETRON INJ 2 MG/ML 2 ML VIAL IV PRN (02:15)
[2017-03-11] MEDS ORDERED: POLYETHYLENE (MIRALAX) 17 GM PACK PO PRN (02:30)
[2017-03-11] MEDS ORDERED: IV FLUIDS COMPLETED PRN (03:00)
[2017-03-11] MEDS: LACTULOSE SYRUP 30 GM/45 ML UDP PO SCH ×3 (05:51→21:19)
[2017-03-11] MEDS: SUCRALFATE 1 GM/10 ML UDC PO SCH ×4 (05:51→21:18)
[2017-03-11] MEDS ORDERED: PNEUMOCOCCAL POLYSACCHARIDES 25 MCG/0.5 ML VIAL/SYR IM. ONE (06:15)
[2017-03-11] MEDS ORDERED: PNEUMOCOCCAL ADMINISTRATION CHARGE ONE (06:15)
[2017-03-11] MEDS ORDERED: INFLUENZA ADMINISTRATION CHARGE ONE (06:15)
[2017-03-11] MEDS ORDERED: INFLUENZA VIRUS QUAD VACCINE 0.5 ML SYR IM. ONE (06:15)
[2017-03-11] MEDS: NADOLOL 40 MG TAB PO SCH (08:36)
[2017-03-11] MEDS: MAGNESIUM OXIDE 400 MG TAB PO SCH ×2 (08:36→21:20)
[2017-03-11] MEDS: FLUOXETINE HCL 10 MG CAP PO SCH (08:37)
[2017-03-11] MEDS: RIFAXIMIN TAB 550 MG TAB PO SCH ×2 (08:37→21:20)
[2017-03-11] MEDS: THIAMINE HCL 100 MG TAB PO SCH (08:37)
[2017-03-11] MEDS: PANTOprazole SOD 40 MG TAB PO SCH ×2 (08:37→21:21)
[2017-03-11] MEDS ORDERED: FERROUS SULFATE 325 MG TAB PO SCH (09:00)
--- NOTE | 2017-03-11 10:51 | DIAGNOSTIC IMAGING REPORT ---
ULTRASOUND GUIDED THERAPEUTIC PARACENTESIS CLINICAL HISTORY: ascites - therapeutic COMPARISON STUDY: CT of the abdomen and pelvis July 28, 2016. PROCEDURE: The risks, benefits, and alternatives to the procedure were discussed with the patient and her sister including the risk of bleeding, infection and injury to adjacent structures. The patient and her sister agreed to the procedure and informed written consent was obtained from the patient's sister given the patient's altered mental status. Following real-time ultrasound localization, the skin of the right lower quadrant was prepped and draped. Following local anesthesia with Xylocaine, the sheath paracentesis needle was inserted and approximately 2 liters of straw-colored fluid was removed by vacuum suction. The patient tolerated the procedure well and no immediate complications were evident. IMPRESSION: Ultrasound-guided paracentesis with removal of 2 liters of ascites. Electronically signed by: Asif Espinoza M.D. 03/11/2017 10:50 AM Dictated Date/Time: 03/11/2017 10:49 AM
--- NOTE | 2017-03-11 15:26 | Progress Note ---
Progress Note Date of Service Mar 11, 2017. Progress Note Patient seen and examined this AM after paracentesis, patient confused, no distress. Paracentesis removed 2 liters of straw colored fluid, just therapeutic, no analysis performed. Met with family at the bedside this afternoon, specifically talked with the patient's sister who is POA. Discussed hospice and they are in agreement that patient needs hospice, this has been recommended by Dr Maxwell and Dr. Miller. Sister agrees that patient should be level 5 DNR from this point on. Morphine ordered for pain Going to try some gentle fluids, repeat BMP tomorrow AM, check ammonia level. Will determine best setting for hospice based on tomorrow's labs and discussions with family.
[2017-03-11] MEDS: SODIUM CHLORIDE 0.9% 1000ML 1,000 ML IV SCH ×2 (15:35→21:42)
--- NOTE | 2017-03-11 16:39 | Palliative Care Consultation ---
Consultation Date of Consultation: Mar 11, 2017. Requesting Physician: Dr. Liu Attending Physician: Dr. Liu Reason for Consultation: Goals of care History of Present Illness This 72 year old female patient with PMH end-stage liver disease presented to the hospital yesterday with altered mental status. She had a therapeutic paracentesis this morning in which 2L ascitic fluid was removed. Patient remains confused, ammonia elevated at 42 today, creatinine worsening to 1.6 today (baseline about 1.10 according to previous labs). Patient's sisters Glenda and Danielle are patient's POAs/decision makers and have expressed that they would really like patient to be made comfortable at this point. Palliative care consulted. I met with the patient and her sister in room 454. Patient is confused, not really able to participate in goals of care conversation at this time. Sister, Danielle, and I stepped out of room to talk. Danielle pointed out that hospice has been recommended to patient by Dr. Sullivan (PCP) and Dr. Miller (GI) now for quite some time. Patient was previously not ready for hospice, but Danielle says that patient has since changed as her condition has worsened. She says that patient is tired and "done." Danielle and Glenda have made patient a DNR and want hospice care upon discharge. See plan below. Past Medical/Surgical History Medical History: Alcoholic cirrhosis of liver History of alcohol abuse Hypertension Peptic ulcer disease Umbilical hernia Surgical: EGD 08/04 - No varices, Schatzkis ring, Gastric polyp. Hysterectomy Incarcerated hernia Social History Smoking Status: Unknown if Ever Smoked History of Alcohol Use: No Drug Use: none Marital Status: Housing Status: lives alone Occupation Status: retired Review of Systems unable to obtain full ROS due to altered mental status Allergies Coded Allergies: Guaifenesin (Verified Allergy, Unknown, Unknown, 03/10/17) Morphine (Verified Allergy, Unknown, kidney failure, 03/10/17) Dextromethorphan (Verified Adverse Reaction, Intermediate, PALPITATIONS, ) Doxylamine (Verified Adverse Reaction, Intermediate, PALPITATIONS, 03/10/17 ) Pseudoephedrine (Verified Adverse Reaction, Intermediate, PALPITATIONS, ) Iodinated Diagnostic Agents (Verified Adverse Reaction, Unknown, KIDNEY PROBLEMS WITH CONTRAST DYE, 03/10/17) Medications Current Inpatient Medications Medications (Trade) Dose Ordered Sig/Nael Route Start Time Stop Time Status Last Admin Dose Admin Al Hydrox/Mg Hydrox/Simethicone (Maalox Max Susp) 15 ml Q4H PRN PO 03/11/17 02:15 04/10/17 02:14 Magnesium Hydroxide (Milk Of Magnesia Susp) 30 ml Q6H PRN PO 03/11/17 02:15 04/10/17 02:14 Polyethylene (Miralax Powder Packet) 17 gm DAILY PRN PO 03/11/17 02:30 04/10/17 02:29 Ondansetron HCl (Zofran Inj) 4 mg Q6H PRN IV 03/11/17 02:15 04/10/17 02:14 Ferrous Sulfate (Feosol Tab) 325 mg Q2D PO 03/11/17 09:00 04/10/17 08:59 03/11/17 08:37 325 MG Fluoxetine HCl (Prozac Cap) 10 mg QAM PO 03/11/17 08:00 04/10/17 08:59 03/11/17 08:37 10 MG Folic Acid (Folvite Tab) 1 mg QAM PO 03/11/17 08:00 04/10/17 08:59 03/11/17 08:37 1 MG Magnesium Oxide (Mag-Ox Tab) 400 mg BID PO 03/11/17 08:00 04/10/17 08:59 03/11/17 08:36 400 MG Nadolol (Corgard Tab) 10 mg DAILY PO 03/11/17 08:00 04/10/17 08:59 03/11/17 08:36 10 MG Oxycodone HCl (Roxicodone Immediate Rel Tab) 5 mg Q6H PRN PO 03/11/17 02:30 03/25/17 02:29 Pantoprazole Sodium (Protonix Tab) 40 mg BID PO 03/11/17 08:00 04/10/17 08:59 03/11/17 08:37 40 MG Rifaximin (Xifaxan Tab) 550 mg BID PO 03/11/17 08:00 04/10/17 08:59 03/11/17 08:37 550 MG Sucralfate (Carafate Susp) 1 gm ACHS PO 03/11/17 06:30 2/21/18 06:59 03/11/17 11:00 1 GM Thiamine HCl (Vitamin B-1 Tab) 100 mg QAM PO 03/11/17 08:00 04/10/17 08:59 03/11/17 08:37 100 MG Lactulose (Chronulac Syrup) 30 gm Q8 PO 03/11/17 06:00 04/10/17 05:59 03/11/17 13:43 30 GM Miscellaneous (Iv Fluids Completed) 1 ea PRN PRN N/A 03/11/17 03:00 03/11/18 02:59 Sodium Chloride 1,000 ml @ 75 mls/hr [id number] IV 03/11/17 15:30 04/10/17 15:29 03/11/17 15:35 75 MLS/HR Morphine Sulfate (MoRPHine SULFATE INJ) 2 mg Q4 PRN IV 03/11/17 15:30 03/25/17 15:29 Physical Exam Date Time Temp Pulse Resp B/P (MAP) Pulse Ox O2 Delivery O2 Flow Rate FiO2 03/11/17 15:58 36.2 73 20 73/47 (56) 94 Room Air 03/11/17 12:00 36.4 71 18 123/66 (85) 97 Room Air 03/11/17 11:30 36.4 74 18 106/60 (75) 100 Room Air 03/11/17 11:00 36.5 78 18 103/68 (80) 96 Room Air 03/11/17 10:30 36.4 72 18 97/57 (70) 95 Room Air 03/11/17 08:00 Room Air 03/11/17 07:00 36.4 76 18 107/65 (79) 97 Room Air 03/11/17 04:49 36.7 76 16 116/69 99 Room Air 03/11/17 03:51 36.7 76 16 116/69 (85) 99 Room Air 03/11/17 03:15 78 21 98 03/11/17 03:00 77 18 105/69 98 03/11/17 02:45 78 98 03/11/17 02:40 77 17 98 Room Air 03/11/17 02:31 121/62 03/11/17 02:25 79 97 03/11/17 02:10 78 17 99 03/11/17 02:01 122/62 03/11/17 01:55 78 18 97 03/11/17 01:40 78 16 98 03/11/17 01:35 78 19 98 03/11/17 01:30 123/59 03/11/17 01:22 79 16 106/63 99 Room Air 03/11/17 01:20 79 15 98 03/11/17 01:05 78 26 97 03/11/17 01:00 106/63 03/11/17 00:50 78 23 98 03/11/17 00:35 76 20 98 03/11/17 00:30 107/64 03/11/17 00:20 77 22 98 03/11/17 00:05 78 28 98 03/11/17 00:00 79 25 117/62 97 03/10/17 23:59 116/61 03/10/17 23:55 79 19 98 03/10/17 23:42 78 03/10/17 23:40 79 21 98 03/10/17 23:30 80 20 98 Room Air 03/10/17 23:29 36.7 80 18 113/65 98 Room Air 03/10/17 23:28 113/65 General Appearance: no apparent distress, + pertinent finding (chronically ill appearing) ENT: hearing grossly normal Neck: supple, no JVD Respiratory: no respiratory distress, no accessory muscle use Cardiovascular: regular rate, rhythm Abdomen: + pertinent finding (dressing from paracentesis intact) Musculoskeletal: pertinent finding (deconditioned) Neurologic/Psychiatric: alert, + disoriented Skin: + jaundice Laboratory Results Last 24 Hours Test 03/10/17 23:30 03/10/17 23:31 03/10/17 23:55 White Blood Count 9.89 K/uL Red Blood Count 3.48 M/uL Hemoglobin 9.3 g/dL Hematocrit 27.1 % Mean Corpuscular Volume 77.9 fL Mean Corpuscular Hemoglobin 26.7 pg Mean Corpuscular Hemoglobin Concent 34.3 g/dl Platelet Count 220 K/uL Mean Platelet Volume 9.9 fL Neutrophils (%) (Auto) 72.0 % Lymphocytes (%) (Auto) 9.2 % Monocytes (%) (Auto) 17.0 % Eosinophils (%) (Auto) 1.3 % Basophils (%) (Auto) 0.1 % Neutrophils # (Auto) 7.12 K/uL Lymphocytes # (Auto) 0.91 K/uL Monocytes # (Auto) 1.68 K/uL Eosinophils # (Auto) 0.13 K/uL Basophils # (Auto) 0.01 K/uL RDW Standard Deviation 56.1 fL RDW Coefficient of Variation 19.7 % Immature Granulocyte % (Auto) 0.4 % Immature Granulocyte # (Auto) 0.04 K/uL Prothrombin Time 14.9 SECONDS Prothromb Time International Ratio 1.4 Activated Partial Thromboplast Time 32.6 SECONDS Partial Thromboplastin Ratio 1.3 Sodium Level 133 mmol/L Potassium Level 4.1 mmol/L Chloride Level 101 mmol/L Carbon Dioxide Level 24 mmol/L Anion Gap 8.0 mmol/L Blood Urea Nitrogen 20 mg/dl Creatinine 1.60 mg/dl Est Creatinine Clear Calc Drug Dose 30.6 ml/min Estimated GFR () 36.4 Estimated GFR (Non- 31.4 BUN/Creatinine Ratio 12.6 Random Glucose 105 mg/dl Calcium Level 7.6 mg/dl Total Bilirubin 2.3 mg/dl Direct Bilirubin 1.6 mg/dl Aspartate Amino Transf (AST/SGOT) 113 U/L Alanine Aminotransferase (ALT/SGPT) 29 U/L Alkaline Phosphatase 144 U/L Total Creatine Kinase 30 U/L Creatine Kinase MB 0.7 ng/ml Creatine Kinase MB Ratio 2.3 Troponin I < 0.015 ng/ml Total Protein 5.9 gm/dl Albumin 1.6 gm/dl Lipase 125 U/L Thyroid Stimulating Hormone (TSH) 3.490 uIu/ml Ammonia 42.0 umol/L Urine Color ORANGE Urine Appearance CLEAR Urine pH 5.0 Urine Specific [place] 1.025 Urine Protein NEG Urine Glucose (UA) NEG Urine Ketones TRACE Urine Occult Blood NEG Urine Nitrite Urine Bilirubin 1+ Urine Urobilinogen NEG Urine Leukocyte Esterase SMALL Urine WBC (Auto) 5-10 /hpf Urine RBC (Auto) 0-4 /hpf Urine Hyaline Casts (Auto) 10-30 /lpf Urine Epithelial Cells (Auto) >30 /lpf Urine Bacteria (Auto) NEG Urine Renal Epithelial Cells /lpf Urine Pathogenic Casts /lpf Urine Yeast (Auto) BUD W/ HYPHAE Assessment & Plan Problem list: Altered mental status/hepatic encephalopathy Ascites s/p paracentesis- 2L ascitic fluid removed 03/11/17 Alcoholic liver cirrhosis/end-stage liver disease Hyperbilirubinemia BRADY on CKD Malnutrition/hypoalbuminemia Goals of care Palliative care recs: -Patient is now DNR. -Goal is for comfort per the patient's sister, Danielle. -I will meet with both of patient's sisters/POAs, Danielle and Glenda, tomorrow to discuss hospice care and complete POLST form. -Patient should meet criteria for hospice based on labs and desire to not return to hospital. -Patient has 24/7 care at home, Danielle stated they'd like to do home hospice. Thank you kindly for this consult. I will follow.
[2017-03-11] MEDS: MoRPHine SULFATE 2 MG/ML CARP IV PRN (17:33)
[2017-03-12] MEDS: MoRPHine SULFATE 2 MG/ML CARP IV PRN ×2 (01:01→19:57)
[2017-03-12 01:13] VITALS: BP 144/82; PULSE 74; TEMP 36.6; O2SAT 98
[2017-03-12] MEDS: LACTULOSE SYRUP 30 GM/45 ML UDP PO SCH ×3 (05:44→22:00)
[2017-03-12] MEDS: SUCRALFATE 1 GM/10 ML UDC PO SCH ×4 (05:44→20:48)
[2017-03-12] MEDS: FLUOXETINE HCL 10 MG CAP PO SCH (07:19)
[2017-03-12] MEDS: THIAMINE HCL 100 MG TAB PO SCH (07:19)
[2017-03-12] MEDS: MAGNESIUM OXIDE 400 MG TAB PO SCH ×2 (07:19→20:00)
[2017-03-12] MEDS: NADOLOL 40 MG TAB PO SCH (07:20)
[2017-03-12] MEDS: PANTOprazole SOD 40 MG TAB PO SCH ×2 (07:21→20:00)
[2017-03-12] MEDS: RIFAXIMIN TAB 550 MG TAB PO SCH ×2 (07:21→20:00)
[2017-03-12 07:30] VITALS: BP 130/75; PULSE 87; TEMP 36.6; O2SAT 94
[2017-03-12 07:33] LABS: BASO % 0.3 %; BASO ABS # 0.02 K/uL (0-0.2); EOS % 1.7 %; EOS ABS # 0.12 K/uL (0-0.5); HEMATOCRIT 28.4 % (37-47); HEMOGLOBIN 9.7 g/dL (12.0-16.0); IG# 0.03 K/uL (0.00-0.02); LYMPH % 10.8 %; LYMPH ABS # 0.78 K/uL (1.2-3.4); MEAN CELL VOLUME 78.9 fL (80-100); MEAN CORPUSCULAR HEMOGLOBIN 26.9 pg (25-34); MEAN CORPUSCULAR HGB CONC 34.2 g/dl (32-36); MEAN PLATELET VOLUME 9.8 fL (7.4-10.4); MONO % 16.2 %; MONO ABS # 1.17 K/uL (0.11-0.59); NEUT % 70.6 %; NEUT ABS # 5.09 K/uL (1.4-6.5); PLATELET COUNT 218 K/uL (130-400); RED CELL DISTRIBUTION WIDTH CV 19.8 % (11.5-14.5); RED CELL DISTRIBUTION WIDTH SD 57.8 fL (36.4-46.3); WHITE BLOOD COUNT 7.21 K/uL (4.8-10.8)
[2017-03-12 08:00] VITALS: O2SAT 94
[2017-03-12 08:07] LABS: CALCIUM 8.2 mg/dl (8.5-10.1); CREATININE 1.6 mg/dl (0.60-1.20); POTASSIUM 3.6 mmol/L (3.5-5.1)
[2017-03-12] MEDS: OXYCODONE HCL IR 5 MG TAB (IMMEDIATE RELEASE) PO PRN (09:02)
[2017-03-12] MEDS ORDERED: HALOPERIDOL LACTATE 5 MG/ML 1 ML VIAL IM ONE (10:00)
--- NOTE | 2017-03-12 13:02 | GASTROINTESTINAL CONSULTATION ---
DATE OF CONSULTATION: 03/12/2017 DATE OF CONSULTATION: 03/12/2017 CHIEF COMPLAINT: Ascites. HISTORY OF PRESENT ILLNESS: Mrs. Sosa is a 72-year-old white female known to Dr. Miller in [facility] for alcoholic related cirrhosis with a history of ascites. The patient is accompanied by her family. The patient overall appears awake and alert, although does not appear oriented to month or year. She was, however, more easily directed. According to the patient's family and the available records, the patient stopped diuretic therapy sometime over the past 6 months since the summer time due to hypotensive events. Gradually over time she noticed an increase in abdominal girth and weight. She does not adhere well to a restricted sodium intake. She denies any fever or chills and has not reported any hematemesis, coffee-ground emesis or melena, although occasionally there may be some bright red blood that is scant in nature believed to be due to hemorrhoids. The patient had been evaluated several years ago at [place] for her liver disease. The patient underwent paracentesis during this admission for which 2 liters were removed. I do not see a cell count at this time regarding the ascitic fluid. PAST MEDICAL HISTORY: End-stage liver disease, history of hepatic encephalopathy without history of significant gastrointestinal hemorrhaging. She did have upper endoscopies in the August 2016. The patient also has history of hypertension, peptic ulcer disease, umbilical hernia. In July 2016 EGD revealed no evidence for varices, gastric polyp and Schatzki ring. She also has a history of an incarcerated hernia and hysterectomy. FAMILY HISTORY: Significant for cancer, diabetes and heart disease. SOCIAL HISTORY: The patient denies tobacco use. . No longer uses alcoholic beverages. Lives alone and is retired, although has around the clock care for her. ALLERGIES: SHE HAS SEVERAL ALLERGIES INCLUDING GUAIFENESIN, MORPHINE, DEXTROMETHORPHAN, DOXYLAMINE, PSEUDOEPHEDRINE AND IODINATED DIAGNOSTIC AGENTS. HOME MEDICATIONS: Include ascorbic acid, ferrous sulfate, fluoxetine, folic acid, furosemide, magnesium, milk thistle, MVI, nadolol 10 mg daily, pantoprazole, potassium, rifaximin 550 mg twice daily, spironolactone 200 mg daily, which the patient reports was stopped and the furosemide 80 mg was also discontinued, Carafate, and thiamine B1. REVIEW OF SYSTEMS: Otherwise noncontributory based on 13-point exam except for mentioned above. The patient has noted increase in abdominal girth. There has been no reports of jaundice or change in stool or urine color. PHYSICAL EXAMINATION: GENERAL: Today shows a thin female in no acute distress, resting comfortably in bed. HEAD, EYES, EARS, NOSE, AND THROAT: Sclerae are anicteric, conjunctiva moist. Oral mucosa moist. HEART: Normal S1, S2. LUNGS: Clear to auscultation without rales, rhonchi or wheezes. ABDOMEN: Soft, mildly firm without rebound or guarding. The patient does not have tense ascites appreciated at this time. There is no evidence of abdominal masses or abdominal wall hernias. EXTREMITIES: Without clubbing, cyanosis or edema. RECTAL: Deferred at this time. LABORATORY STUDIES: On admission 03/10/2017 revealed a white count 9.8, hemoglobin of 9.3, MCV 77.9, platelets 220,000. BUN and creatinine are 20 and 1.6, total bilirubin 2.3, direct 1.6, AST 113, ALT 29, alkaline phosphatase 144, CPK 30 with an MB of 0.7. Troponins are negative. Lipase 125, albumin is low at 1.6. TSH 3.5. Ammonia 42. Urine showed trace ketones, negative for blood. Leukocyte esterase is small. There are 5-10 white blood cells, but urine hyaline casts are seen. There is also greater than 30 epithelial cells. IMAGING DATA: CT performed that showed evidence of cirrhosis in July of 2016 with portal hypertension, mild wall thickening of the ascending colon felt related to portal colopathy. Cholelithiasis. Small ventral hernia. IMPRESSION AND PLAN: A patient with a history of end-stage liver disease due to alcohol abuse which she has abstained for several years. The patient did discontinue diuretic therapy sometime since December and was hospitalized in August 2016 for which she underwent the above endoscopy. She has not had any overt bleeding. She does have a mild microcytosis and anemia. She does not adhere well to a salt restricted diet. She has mild renal insufficiency based on creatinine of 1.6. There was some discussion about difficulty with urine passage and she reports that there is an evaluation planned for Saturday. I made the following recommendations: Would avoid excess fluids if possible and if tolerated can advance diet to a total of 5557-4574 mL of fluids daily in addition to complying with a 2 gram sodium restriction which may help reduce her ascites. Albumin and oncotic pressure is low and she may benefit from a nutrition consult to help her determine what are the best foods including strict avoidance of processed foods, canned soups and materials that would have high sodium load on their own. Depending on the patient's blood pressure and renal function, perhaps a small dose of diuretics can be cautiously administered with strict observation of her blood pressure, renal function, urinary output. This may be a dose of 10-20 mg of Lasix daily and perhaps 25 or 50 mg of Aldactone daily at least initially monitoring electrolytes, particularly potassium. If repeat paracentesis performed it may be helpful to do a cell count, send the fluid for cytology to exclude infection by culturing and would consider a serum theta protein level in addition to consideration for an ultrasound for hepatoma screening. In addition, portal Doppler may be helpful to exclude portal vein thrombosis which may be a potential cause of her onset of ascites. Dr. Miller will be following over the next several days. All questions answered.
--- NOTE | 2017-03-12 14:23 | GASTROENTEROLOGY PROGRESS NOTE ---
DATE: 03/12/2017 SUBJECTIVE: The patient is very confused and not speaking coherently. She is very somnolent. She had 2 liters of fluid removed from her abdomen yesterday. The fluid was not sent for any cultures or cell counts. The fluid was straw colored and consistent with transudative ascites. OBJECTIVE: Currently her vital signs are normal. She is afebrile. She has had 5 bowel movements out today so far on lactulose. She is also on Xifaxan as well for hepatic encephalopathy. She continues to take nadolol for esophageal varices. In the past few months, her diuretics have been held due to low blood pressure and elevations in her BUN and creatinine. Currently, her BUN is 20 and creatinine is 1.6. She still has a fair amount of ascites on physical exam. Plan on starting Aldactone back at 25 mg a day along with 10 mg of Lasix a day and will restrict her sodium to 2 grams per day and follow her urine output.
[2017-03-12] MEDS: SODIUM CHLORIDE 0.9% 1000ML 1,000 ML IV SCH (15:00)
[2017-03-12 15:44] VITALS: BP 113/63; PULSE 81; TEMP 36.6; O2SAT 97
--- NOTE | 2017-03-12 16:37 | Palliative Care Progress Note ---
Palliative Care Progress Note Date of Service Mar 12, 2017. Subjective Pt evaluation today including: conversation w/ patient, conversation w/ family (sisters Lizbeth Lowe and Glenda Castorena), chart review, conversation w/ community resource consultant (Dr. Liu), review of inpatient medication list Pain: no s/s pain at this time PO Intake: minimal Met with patient this morning. She is confused and was rather lethargic when I saw her. She required a dose of Haldol for agitation and was sleepy. ROS unable to be obtained, physical exam not done at this time as patient was agitated and just settled down. Sisters asked that patient not be disturbed unless necessary. Met with patient's sisters/PODali, Lizbeth and Glenda along with Dr. Liu. Dr. Liu gave them an update on patient's status and current labs. After discussion, both sisters confirmed that plan is for comfort measures only and home with hospice. They chose [facility], referral has been made. Review of Systems unable to obtain due to altered mental status Objective Vital Signs Date Time Temp Pulse Resp B/P (MAP) Pulse Ox O2 Delivery O2 Flow Rate FiO2 03/12/17 16:00 Room Air 03/12/17 15:44 36.6 81 18 113/63 (80) 97 Room Air 03/12/17 08:00 94 Room Air 03/12/17 07:30 36.6 87 16 130/75 (93) 94 Room Air 03/12/17 01:13 36.6 74 18 144/82 (102) 98 Room Air 03/12/17 00:05 Room Air 03/11/17 20:00 Room Air 03/11/17 16:29 101/57 (72) Physical Exam General Appearance: no apparent distress ENT: hearing grossly normal Neck: supple, no JVD Respiratory/Chest: no respiratory distress, no accessory muscle use Neurologic/Psychiatric: + disoriented, + pertinent finding (lethargic) Skin: + jaundice Comments: full physical exam not completed at this time Assessment and Plan Problem list: Altered mental status/hepatic encephalopathy Ascites s/p paracentesis- 2L ascitic fluid removed 03/11/17 Alcoholic liver cirrhosis/end-stage liver disease Hyperbilirubinemia BRADY on CKD Malnutrition/hypoalbuminemia Goals of care Palliative care recs: -Plan is for home with hospice and / care per patient's sisters/Becka Jamesnolan Antoniocristy and Lizbeth Lowe. -Would discontinue all non-essential medications at this point, sisters in agreement. -Would add Roxanol 5-10mg PO Q3h PRN pain or SOB. -Haldol 1mg PO/SL Q4h PRN agitation (can be crushed and slurried for SL use). -POLST form completed as follows: DNR, comfort measures only, abx with comfort as the goal, no artificial hydration/nutrition. -GI following and making recommendations for diuretics. Thank you again for consulting me. I will follow as needed.
--- NOTE | 2017-03-12 22:21 | Progress Note ---
Subjective Date of Service: Mar 12, 2017. Subjective Pt evaluation today including: conversation w/ patient, conversation w/ family , physical exam, lab review, conversation w/ senior [employer] consultant, review of inpatient medication list Pain: grimacing from time to time, no complaints of specific pain PO Intake: poor Voiding: incontinence very little urine output today despite fluids reviewed labs, Cr still at 1.6 despite fluid challenge, BUN 20, K is 3.6 patient confused, agitated all night, still agitated in the morning resolved with Haldol 5mg long talk with patient's sisters with Maryuri [employer] ARCHITECT with palliative care decided on going home with hospice will choose agency and get everything in place for discharge all questions answered explained that kidneys likely shutting down, poor prognosis short term Problem List Medical Problems: (1) Dehydration Status: Acute (2) Fever Status: Acute (3) GI bleeding Status: Acute (4) Hepatic encephalopathy Status: Acute (5) Hypotension Status: Acute Review of Systems cannot review, confused, agitated Medications Current Inpatient Medications Medications (Trade) Dose Ordered Sig/Nael Route Start Time Stop Time Status Last Admin Dose Admin Al Hydrox/Mg Hydrox/Simethicone (Maalox Max Susp) 15 ml Q4H PRN PO 03/11/17 02:15 04/10/17 02:14 Magnesium Hydroxide (Milk Of Magnesia Susp) 30 ml Q6H PRN PO 03/11/17 02:15 04/10/17 02:14 Polyethylene (Miralax Powder Packet) 17 gm DAILY PRN PO 03/11/17 02:30 04/10/17 02:29 Ondansetron HCl (Zofran Inj) 4 mg Q6H PRN IV 03/11/17 02:15 04/10/17 02:14 Ferrous Sulfate (Feosol Tab) 325 mg Q2D PO 03/11/17 09:00 04/10/17 08:59 03/11/17 08:37 325 MG Fluoxetine HCl (Prozac Cap) 10 mg QAM PO 03/11/17 08:00 04/10/17 08:59 03/12/17 07:19 10 MG Folic Acid (Folvite Tab) 1 mg QAM PO 03/11/17 08:00 04/10/17 08:59 03/12/17 07:21 1 MG Magnesium Oxide (Mag-Ox Tab) 400 mg BID PO 03/11/17 08:00 04/10/17 08:59 03/12/17 07:19 400 MG Nadolol (Corgard Tab) 10 mg DAILY PO 03/11/17 08:00 04/10/17 08:59 03/12/17 07:20 10 MG Oxycodone HCl (Roxicodone Immediate Rel Tab) 5 mg Q6H PRN PO 03/11/17 02:30 03/25/17 02:29 03/12/17 09:02 5 MG Pantoprazole Sodium (Protonix Tab) 40 mg BID PO 03/11/17 08:00 04/10/17 08:59 03/12/17 07:21 40 MG Rifaximin (Xifaxan Tab) 550 mg BID PO 03/11/17 08:00 04/10/17 08:59 03/12/17 07:21 550 MG Sucralfate (Carafate Susp) 1 gm ACHS PO 03/11/17 06:30 04/10/17 06:59 03/12/17 10:09 1 GM Thiamine HCl (Vitamin B-1 Tab) 100 mg QAM PO 03/11/17 08:00 04/10/17 08:59 03/12/17 07:19 100 MG Lactulose (Chronulac Syrup) 30 gm Q8 PO 03/11/17 06:00 04/10/17 05:59 03/12/17 05:44 30 GM Miscellaneous (Iv Fluids Completed) 1 ea PRN PRN N/A 03/11/17 03:00 03/11/18 02:59 Sodium Chloride 1,000 ml @ 75 mls/hr [id number] IV 03/11/17 15:30 04/10/17 15:29 03/12/17 15:00 75 MLS/HR Morphine Sulfate (MoRPHine SULFATE INJ) 2 mg Q4 PRN IV 03/11/17 15:30 03/25/17 15:29 03/12/17 19:57 2 MG Spironolactone (Aldactone Tab) 25 mg QAM PO 03/13/17 08:00 04/12/17 07:59 Furosemide (Lasix Tab) 10 mg QAM PO 03/13/17 08:00 04/12/17 07:59 Objective Vital Signs Date Time Temp Pulse Resp B/P (MAP) Pulse Ox O2 Delivery O2 Flow Rate FiO2 03/12/17 16:00 Room Air 03/12/17 15:44 36.6 81 18 113/63 (80) 97 Room Air 03/12/17 08:00 94 Room Air 03/12/17 07:30 36.6 87 16 130/75 (93) 94 Room Air 03/12/17 01:13 36.6 74 18 144/82 (102) 98 Room Air 03/12/17 00:05 Room Air Physical Exam General Appearance: + mild distress, + thin Neck: supple, no adenopathy, no JVD, trachea midline Respiratory/Chest: chest non-tender, lungs clear, no respiratory distress, no accessory muscle use, + decreased breath sounds (bases) Cardiovascular: regular rate, rhythm, no gallop, no JVD, no murmur Abdomen: non tender, soft, + abnormal bowel sounds, + distended, + pertinent finding (ascites) Extremities: non-tender, normal inspection, no calf tenderness, normal capillary refill, pelvis stable, + pedal edema Neurologic/Psychiatric: + motor weakness, + depressed affect, + disoriented Laboratory Results Last 24 Hours Test 03/12/17 07:22 White Blood Count 7.21 K/uL Red Blood Count 3.60 M/uL Hemoglobin 9.7 g/dL Hematocrit 28.4 % Mean Corpuscular Volume 78.9 fL Mean Corpuscular Hemoglobin 26.9 pg Mean Corpuscular Hemoglobin Concent 34.2 g/dl Platelet Count 218 K/uL Mean Platelet Volume 9.8 fL Neutrophils (%) (Auto) 70.6 % Lymphocytes (%) (Auto) 10.8 % Monocytes (%) (Auto) 16.2 % Eosinophils (%) (Auto) 1.7 % Basophils (%) (Auto) 0.3 % Neutrophils # (Auto) 5.09 K/uL Lymphocytes # (Auto) 0.78 K/uL Monocytes # (Auto) 1.17 K/uL Eosinophils # (Auto) 0.12 K/uL Basophils # (Auto) 0.02 K/uL RDW Standard Deviation 57.8 fL RDW Coefficient of Variation 19.8 % Immature Granulocyte % (Auto) 0.4 % Immature Granulocyte # (Auto) 0.03 K/uL Sodium Level 137 mmol/L Potassium Level 3.6 mmol/L Chloride Level 108 mmol/L Carbon Dioxide Level 23 mmol/L Anion Gap 7.0 mmol/L Blood Urea Nitrogen 20 mg/dl Creatinine 1.60 mg/dl Est Creatinine Clear Calc Drug Dose 30.6 ml/min Estimated GFR () 36.4 Estimated GFR (Non- 31.4 BUN/Creatinine Ratio 12.5 Random Glucose 126 mg/dl Calcium Level 8.2 mg/dl Phosphorus Level 3.0 mg/dl Magnesium Level 2.6 mg/dl Ammonia 39.3 umol/L Assessment and Plan 72 yo female with history of cirrhosis with ascites, difficulty tolerating diuretics due to hypotension, presented with increased confusion, pain in abdomen - Cirrhosis with hepatic encephalopathy, ascites, hypotension patient has been declining for the past several months per family, got significantly worse more recently hospice had been suggested by PCP and GI but patient had been reluctant to the idea will continue Rifaximin and Lactulose for encephalopathy, still confused today hold on diuretics since her Cr is up at 1.6 therapeutic paracentesis on 03/11 for 2 liters of straw colored fluid, no analysis sent - BRADY, Cr at 1.6, no improvement with IV fluids could represent the start of hepatorenal syndrome, very little urine output, no improvement in Cr with IV fluids patient not drinking well discussed with family, want hospice, will not check further labs - Agitation: PRN Haldol, worked well this AM - Severe protein calorie malnutrition: albumin low at 1.6 very poor oral intake for past several weeks per family certainly limiting her ability to recover DNR Plan is to go home on hospice once everything arranged Limit medications to those that provided comfort likely home in 2 days
[2017-03-12] MEDS ORDERED: MoRPHine SULFATE 2 MG/ML CARP ONE (22:24)
[2017-03-13] MEDS: SODIUM CHLORIDE 0.9% 1000ML 1,000 ML IV SCH (04:37)
[2017-03-13] MEDS: OXYCODONE HCL IR 5 MG TAB (IMMEDIATE RELEASE) PO PRN (04:45)
[2017-03-13] MEDS: LACTULOSE SYRUP 30 GM/45 ML UDP PO SCH (06:00)
[2017-03-13] MEDS: SUCRALFATE 1 GM/10 ML UDC PO SCH (06:28)
[2017-03-13] MEDS ORDERED: NURSING VERBAL MED ORDER ONE (06:30)
[2017-03-13] MEDS ORDERED: SPIRONOLACTONE 25 MG TAB PO SCH (08:00)
[2017-03-13] MEDS ORDERED: FUROSEMIDE 20 MG TAB PO SCH (08:00)
[2017-03-13] MEDS: MoRPHine SULFATE 2 MG/ML CARP IV PRN ×2 (09:43→15:12)
[2017-03-13] MEDS ORDERED: LORAZEPAM 0.5 MG TAB PO PRN (11:15)
--- NOTE | 2017-03-13 13:13 | Palliative Care Progress Note ---
Palliative Care Progress Note Date of Service Mar 13, 2017. Subjective Pt evaluation today including: conversation w/ patient, conversation w/ family (sisters Glenda and Danielle), physical exam, chart review, conversation w/ inbound sales consultant (Dr. Liu), review of inpatient medication list Voiding: no incontinence (not making urine) -Patient remains lethargic, but easily wakes to name. She is confused/ disoriented. Said "no" to pain but is restless and agitated at times. She required a dose of IV morphine just prior to me entering room. -Spoke with patient's sisters Erika and Danielle. They are nervous about taking patient home- uncertain of how she would tolerate transfer. We had a long discussion. See plan below. Review of Systems ROS unable to be obtained due to patient condition Objective Vital Signs Date Time Temp Pulse Resp B/P (MAP) Pulse Ox O2 Delivery O2 Flow Rate FiO2 03/13/17 09:30 Room Air 03/13/17 00:00 Room Air 03/12/17 16:00 Room Air 03/12/17 15:44 36.6 81 18 113/63 (80) 97 Room Air Physical Exam General Appearance: no apparent distress ENT: hearing grossly normal Neck: supple, no JVD Respiratory/Chest: lungs clear, no respiratory distress, no accessory muscle use, + decreased breath sounds Cardiovascular: regular rate, rhythm, no edema, + normal peripheral pulses Abdomen: normal bowel sounds, + distended Neurologic/Psychiatric: + disoriented Skin: + jaundice, + pertinent finding (no mottling) Assessment and Plan Problem list: Altered mental status/hepatic encephalopathy Ascites s/p paracentesis- 2L ascitic fluid removed 03/11/17 Alcoholic liver cirrhosis/end-stage liver disease Hyperbilirubinemia BRADY on CKD Malnutrition/hypoalbuminemia Goals of care Palliative care recs: -Family is now uncertain of whether or not they want to move patient. I did stress to them that if their wish is to have patient at home, now is the time as I think we have a short window of time. -They are to call me and let me know what they decide after they talk with Dr. Miller. -If plan is for home, would change morphine to Roxanol 5-10mg PO Q1h PRN pain or SOB. -Can do Haldol 1mg PO/SL Q4h PRN agitation (can be crushed and slurried for SL use). -Discontinue pills. Patient having hard time taking them. -POLST form completed yesterday as follows: DNR, comfort measures only, abx with comfort as the goal, no artificial hydration/nutrition. -If patient continues to rapidly decline this way and she is unable to go home or take any PO medications, she may be eligible for GIP hospice. Will have to reevaluate. Thank you again for consulting me. I will follow as needed.
--- NOTE | 2017-03-13 16:57 | PROGRESS NOTE ---
DATE: 03/12/2017 SUBJECTIVE: The patient continues to be encephalopathic, although a little bit more awake today than yesterday. She was able to tell me her first name, but not her last. She was not able to tell me where she was or have any other coherent conversation. She clearly has hepatic asterixis. PHYSICAL EXAMINATION: VITAL SIGNS: Normal. ABDOMEN: Distended and tympanitic and slightly tender. EXTREMITIES: Showed only trace edema. IMPRESSION: The patient has liver failure from ongoing [place] cirrhosis complicated by ascites and encephalopathy and now renal insufficiency with decreased urine output and worsening hepatic encephalopathy. Comfort measures have been placed and the patient is on hospice. I did have an extended visit today with her ex-, her son and her sister and the plan is for her to remain on hospice and if she survives the night to transfer her home tomorrow for home hospice care. This is what they feel the patient would prefer and hopefully this can be accomplished providing the patient does not deteriorate over night.
--- NOTE | 2017-03-13 21:48 | Progress Note ---
Subjective Date of Service: Mar 13, 2017. Subjective Pt evaluation today including: conversation w/ patient, conversation w/ family , physical exam, review of inpatient medication list Pain: appears comfortable PO Intake: poor Voiding: no voiding problems patient lethargic, confused, little urine output overnight and in the morning did not check labs as pursuing hospice discussed with family that I believe she is in hepatorenal syndrome, likely pass away in next several days discussed going home with hospice vs staying in hospital family concerned about taking care of patient at home appreciate Dr. Miller's input Problem List Medical Problems: (1) Dehydration Status: Acute (2) Fever Status: Acute (3) GI bleeding Status: Acute (4) Hepatic encephalopathy Status: Acute (5) Hypotension Status: Acute Review of Systems cannot review, confused Medications Current Inpatient Medications Medications (Trade) Dose Ordered Sig/Nael Route Start Time Stop Time Status Last Admin Dose Admin Al Hydrox/Mg Hydrox/Simethicone (Maalox Max Susp) 15 ml Q4H PRN PO 03/11/17 02:15 04/10/17 02:14 Magnesium Hydroxide (Milk Of Magnesia Susp) 30 ml Q6H PRN PO 03/11/17 02:15 04/10/17 02:14 Polyethylene (Miralax Powder Packet) 17 gm DAILY PRN PO 03/11/17 02:30 04/10/17 02:29 Ondansetron HCl (Zofran Inj) 4 mg Q6H PRN IV 03/11/17 02:15 04/10/17 02:14 Miscellaneous (Iv Fluids Completed) 1 ea PRN PRN N/A 03/11/17 03:00 03/11/18 02:59 Morphine Sulfate (MoRPHine SULFATE INJ) 2 mg Q2H PRN IV 03/12/17 22:00 03/25/17 15:29 03/13/17 15:12 2 MG Morphine Sulfate (Roxanol Oral Soln) 5 mg Q4 PRN PO 03/13/17 11:15 03/27/17 11:14 Lorazepam (Ativan Tab) 0.5 mg Q6 PRN PO 03/13/17 11:15 04/12/17 11:14 Objective Vital Signs Date Time Temp Pulse Resp B/P (MAP) Pulse Ox O2 Delivery O2 Flow Rate FiO2 03/13/17 15:30 Room Air 03/13/17 09:30 Room Air 03/13/17 00:00 Room Air Physical Exam General Appearance: no apparent distress, + thin Neck: supple, no adenopathy, no JVD, trachea midline Respiratory/Chest: chest non-tender, no respiratory distress, no accessory muscle use, + decreased breath sounds Cardiovascular: regular rate, rhythm, no gallop, no JVD, no murmur Abdomen: soft, + abnormal bowel sounds, + distended Extremities: + pedal edema, + slow capillary refill Neurologic/Psychiatric: + motor weakness, + depressed affect, + disoriented Skin: + jaundice Assessment and Plan 72 yo female with history of cirrhosis with ascites, difficulty tolerating diuretics due to hypotension, presented with increased confusion, pain in abdomen - Cirrhosis with hepatic encephalopathy, ascites, hypotension patient has been declining for the past several months per family, got significantly worse more recently hospice had been suggested by PCP and GI but patient had been reluctant to the idea therapeutic paracentesis on 03/11 for 2 liters of straw colored fluid, no analysis sent d/c all medications except for pain control, hospice care - BRADY, Cr at 1.6, no improvement with IV fluids, strong suspicion for hepatorenal syndrome very little urine output over past 24 hours, more edema patient not drinking well discussed with family, want hospice, may complete here in house - Agitation: PRN Haldol, worked well this AM - Severe protein calorie malnutrition: albumin low at 1.6 very poor oral intake for past several weeks per family certainly limiting her ability to recover DNR hospice, will decide either inpatient or at home tomorrow
[2017-03-13] MEDS: MoRPHine SULFATE 5 MG/0.25 ML UDP PO PRN (23:29)
[2017-03-14] MEDS: MoRPHine SULFATE 5 MG/0.25 ML UDP PO PRN ×3 (04:31→12:37)
--- NOTE | 2017-03-14 13:20 | Palliative Care Progress Note ---
Palliative Care Progress Note Date of Service Mar 14, 2017. Subjective Met with patient's sister Glenda in patient's room this morning. Patient is in same condition as yesterday. Still wakes easily, was smiling today and talking some. Had several doses of PO Roxanol overnight/this morning. Seems to be comfortable and in no pain. Not making urine, having some mild edema of hands and feet now. Still awaiting family's decision on taking patient home. Hospice just needs to know whether or not to deliver equipment and case management could set up transport if the wish is to get her home. Please contact me with any further palliative care needs.
--- NOTE | 2017-03-14 13:41 | Progress Note ---
Subjective Date of Service: Mar 14, 2017. Subjective Pt evaluation today including: conversation w/ patient, conversation w/ family , physical exam, review of inpatient medication list Pain: no pain PO Intake: not eating or drinking patient comfortable, will arouse to voice, try to answer questions no distress Roxanol working for pain relief more edematous today family has not made decision about taking her home Problem List Medical Problems: (1) Dehydration Status: Acute (2) Fever Status: Acute (3) GI bleeding Status: Acute (4) Hepatic encephalopathy Status: Acute (5) Hypotension Status: Acute Review of Systems cannot review, encephalopathy, appears comfortable, no distress Medications Current Inpatient Medications Medications (Trade) Dose Ordered Sig/Nael Route Start Time Stop Time Status Last Admin Dose Admin Al Hydrox/Mg Hydrox/Simethicone (Maalox Max Susp) 15 ml Q4H PRN PO 03/11/17 02:15 04/10/17 02:14 Magnesium Hydroxide (Milk Of Magnesia Susp) 30 ml Q6H PRN PO 03/11/17 02:15 04/10/17 02:14 Polyethylene (Miralax Powder Packet) 17 gm DAILY PRN PO 03/11/17 02:30 04/10/17 02:29 Ondansetron HCl (Zofran Inj) 4 mg Q6H PRN IV 03/11/17 02:15 04/10/17 02:14 Miscellaneous (Iv Fluids Completed) 1 ea PRN PRN N/A 03/11/17 03:00 03/11/18 02:59 Morphine Sulfate (MoRPHine SULFATE INJ) 2 mg Q2H PRN IV 03/12/17 22:00 03/25/17 15:29 03/13/17 15:12 2 MG Morphine Sulfate (Roxanol Oral Soln) 5 mg Q4 PRN PO 03/13/17 11:15 03/27/17 11:14 03/14/17 12:37 5 MG Lorazepam (Ativan Tab) 0.5 mg Q6 PRN PO 03/13/17 11:15 04/12/17 11:14 Objective Vital Signs Date Time Temp Pulse Resp B/P (MAP) Pulse Ox O2 Delivery O2 Flow Rate FiO2 03/14/17 08:30 Room Air 03/14/17 00:20 Room Air 03/13/17 15:30 Room Air Physical Exam General Appearance: no apparent distress, + thin Eyes: normal inspection, EOMI, sclerae normal ENT: + pertinent finding (very dry mucous membranes) Neck: supple, no adenopathy, no JVD, trachea midline Respiratory/Chest: lungs clear, no respiratory distress, no accessory muscle use, + decreased breath sounds Cardiovascular: regular rate, rhythm, no gallop, no JVD, no murmur Abdomen: no organomegaly, + abnormal bowel sounds, + distended, + tenderness Extremities: normal range of motion, non-tender, no calf tenderness, normal capillary refill, pelvis stable, + pedal edema Neurologic/Psychiatric: setup technician II-XII nml as tested, + motor weakness, + depressed affect, + disoriented Skin: + jaundice Lymphatic: no adenopathy Assessment and Plan 72 yo female with history of cirrhosis with ascites, difficulty tolerating diuretics due to hypotension, presented with increased confusion, pain in abdomen - Cirrhosis with hepatic encephalopathy, ascites, hypotension patient has been declining for the past several months per family, got significantly worse more recently hospice had been suggested by PCP and GI but patient had been reluctant to the idea therapeutic paracentesis on 03/11 for 2 liters of straw colored fluid, no analysis sent d/c all medications except for pain control, hospice care - BRADY, Cr at 1.6, no improvement with IV fluids, strong suspicion for hepatorenal syndrome very little urine output over past 48 hours, more edema patient not eating or drinking at all discussed with family, want hospice, may complete here in house - Agitation: PRN Haldol, worked well this AM - Severe protein calorie malnutrition: albumin low at 1.6 very poor oral intake for past several weeks per family certainly limiting her ability to recover DNR hospice, asked CM to look into inpatient hospice, only has a few days to live
[2017-03-14] MEDS: MoRPHine SULFATE 2 MG/ML CARP IV PRN ×3 (15:48→20:00)
--- NOTE | 2017-03-14 16:18 | PROGRESS NOTE ---
DATE: 03/14/2017 The patient is poorly responsive. She will open her eyes slightly with verbal and tactile stimulation. There is no coherent speech. Her ex- and sister are at the bedside. They report that she has been like this basically since yesterday. She has got very little urine output and is starting to show signs of generalized edema from her low protein. IMPRESSION: The patient has liver failure and is developing kidney failure with encephalopathy. Her condition is felt to be terminal and comfort measures and hospice has been initiated. The family would prefer not to move her home at this point because they feel that they will be able to manage her there and expect that she will probably pass away within the next day or so here. Comfort measures are in place for terminal care.
[2017-03-15] MEDS: MoRPHine SULFATE 2 MG/ML CARP IV PRN ×8 (00:09→23:46)
[2017-03-15] MEDS: MoRPHine SULFATE 5 MG/0.25 ML UDP PO PRN ×2 (04:55→09:54)
--- NOTE | 2017-03-15 09:27 | Palliative Care Progress Note ---
Palliative Care Progress Note Date of Service Mar 15, 2017. Subjective Pt evaluation today including: conversation w/ patient, conversation w/ family (nephew), physical exam, chart review, conversation w/ field service consultant, review of inpatient medication list Pain: moaning with facial grimacing at times PO Intake: minimal sips Voiding: no voiding problems (anuric) -Patient is now anuric. -More lethargic today. -Requiring frequent doses of avendano medication. 5 doses of IV morphine in last 24 hours, as well as 4 doses of PO Roxanol to control pain and discomfort. -Family does not want to take patient home in this condition. Review of Systems unable to obtain due to AMS Objective Vital Signs Date Time Temp Pulse Resp B/P (MAP) Pulse Ox O2 Delivery O2 Flow Rate FiO2 03/15/17 00:30 Room Air 03/14/17 16:00 Room Air Physical Exam General Appearance: + cachetic, + thin, + pertinent finding (chronically ill appearing) ENT: hearing grossly normal Neck: supple, no JVD Respiratory/Chest: lungs clear, no respiratory distress, no accessory muscle use, + decreased breath sounds Cardiovascular: regular rate, rhythm, no edema, + pertinent finding (mild edema of hands and feet) Abdomen: normal bowel sounds, soft Neurologic/Psychiatric: + pertinent finding (lethargic, not verbally responding ) Skin: + jaundice Assessment and Plan Problem list: Altered mental status/hepatic encephalopathy Ascites s/p paracentesis- 2L ascitic fluid removed 03/11/17 Alcoholic liver cirrhosis/end-stage liver disease Hyperbilirubinemia BRADY on CKD Malnutrition/hypoalbuminemia Goals of care Palliative care recs: -Patient has had major and rapid decline. More lethargic, anuric, no significant PO intake for days. -Requiring frequent doses of IV and PO morphine to control symptoms. Has had 5 doses of IV morphine and 4 doses of PO Roxanol in last 24 hours. -At this point, would discontinue Roxanol and keep IV morphine for symptom control. -Given patient's rapid decline and use of IV morphine, she is not stable for transfer. I believe this patient will in hours to days, no longer than a week is my best guess. Family is aware. -Will ask hospice agency to evaluate for [facility] hospice. Continued [facility] stay due to: multiple IV medications needed, home environment unsafe for pt
--- NOTE | 2017-03-15 15:19 | Progress Note ---
Subjective Date of Service: Mar 15, 2017. Subjective Pt evaluation today including: conversation w/ family, physical exam, review of inpatient medication list Pain: appears comfortable PO Intake: minimal Voiding: incontinence patient resting comfortably, family requesting chairez for comfort answered all questions Problem List Medical Problems: (1) Dehydration Status: Acute (2) Fever Status: Acute (3) GI bleeding Status: Acute (4) Hepatic encephalopathy Status: Acute (5) Hypotension Status: Acute Review of Systems cannot review due to encephalopathy Medications Current Inpatient Medications Medications (Trade) Dose Ordered Sig/Nael Route Start Time Stop Time Status Last Admin Dose Admin Al Hydrox/Mg Hydrox/Simethicone (Maalox Max Susp) 15 ml Q4H PRN PO 03/11/17 02:15 04/10/17 02:14 Magnesium Hydroxide (Milk Of Magnesia Susp) 30 ml Q6H PRN PO 03/11/17 02:15 04/10/17 02:14 Polyethylene (Miralax Powder Packet) 17 gm DAILY PRN PO 03/11/17 02:30 04/10/17 02:29 Ondansetron HCl (Zofran Inj) 4 mg Q6H PRN IV 03/11/17 02:15 04/10/17 02:14 Miscellaneous (Iv Fluids Completed) 1 ea PRN PRN N/A 03/11/17 03:00 03/11/18 02:59 Morphine Sulfate (MoRPHine SULFATE INJ) 2 mg Q2H PRN IV 03/12/17 22:00 03/25/17 15:29 03/15/17 13:24 2 MG Morphine Sulfate (Roxanol Oral Soln) 5 mg Q4 PRN PO 03/13/17 11:15 03/27/17 11:14 03/15/17 09:54 5 MG Lorazepam (Ativan Tab) 0.5 mg Q6 PRN PO 03/13/17 11:15 04/12/17 11:14 03/15/17 13:21 0.5 MG Objective Vital Signs Date Time Temp Pulse Resp B/P (MAP) Pulse Ox O2 Delivery O2 Flow Rate FiO2 03/15/17 08:00 Room Air 03/15/17 00:30 Room Air 03/14/17 16:00 Room Air Physical Exam General Appearance: no apparent distress, + thin Eyes: normal inspection, EOMI, sclerae normal Neck: supple, no adenopathy, no JVD, trachea midline Respiratory/Chest: chest non-tender, lungs clear, no respiratory distress, no accessory muscle use, + decreased breath sounds Cardiovascular: regular rate, rhythm, no edema, no gallop, no JVD, no murmur Abdomen: no organomegaly, + abnormal bowel sounds, + pertinent finding (ascites ) Extremities: normal range of motion, non-tender, normal inspection, no pedal edema, no calf tenderness, pelvis stable Neurologic/Psychiatric: recovery operator II-XII nml as tested, no motor/sensory deficits, alert, normal mood/affect, oriented x 3 Skin: normal color, warm/dry, no rash Lymphatic: no adenopathy Assessment and Plan 72 yo female with history of cirrhosis with ascites, difficulty tolerating diuretics due to hypotension, presented with increased confusion, pain in abdomen - Cirrhosis with hepatic encephalopathy, ascites, hypotension patient has been declining for the past several months per family, got significantly worse more recently hospice had been suggested by PCP and GI but patient had been reluctant to the idea therapeutic paracentesis on 03/11 for 2 liters of straw colored fluid, no analysis sent d/c all medications except for pain control, hospice care - [facility], Cr at 1.6, no improvement with IV fluids, strong suspicion for hepatorenal syndrome very little urine output over past 48 hours, more edema patient not eating or drinking at all discussed with family, want hospice, may complete here in house - Agitation: PRN Haldol, worked well this AM - Severe protein calorie malnutrition: albumin low at 1.6 very poor oral intake for past several weeks per family certainly limiting her ability to recover DNR strict comfort measures, placed chairez, anticipate she will pass away in next few days Continued [facility] stay due to: multiple IV medications needed, home environment unsafe for pt
[2017-03-16] MEDS: MoRPHine SULFATE 2 MG/ML CARP IV PRN ×3 (01:48→06:04)
[2017-03-16] MEDS ORDERED: MoRPHine SULF/NSS 250MG/250ML 250 ML IV PRN (07:30)
[2017-03-16] MEDS ORDERED: SCOPOLAMINE 1.5 MG TDSY TD SCH (08:00)
[2017-03-16] MEDS ORDERED: CHECK SCOPOLAMINE PATCH PLACEMENT SCH (16:00)
--- NOTE | 2017-03-17 07:44 | Death Summary ---
Summary of Admission Date Mar 12, 2017 at 21:37 Date & Time of Mar 16, 2017. 2005 Cause of Acute renal failure Secondary Diagnoses Hepatorenal syndrome Cirrhosis Ascites Hepatic encephalopathy Severe protein calorie malnutrition Hospital Course 72 yo female with history of cirrhosis with ascites, difficulty tolerating diuretics due to hypotension, presented with increased confusion, pain in abdomen. Initially had a paracentesis for 2L to try to provide comfort. Renal function was noted to be elevated compared to baseline and she had minimal urine output despite IV fluids. Patient was encephalopathic, confused, agitated at times. Long discussion with family regarding her poor prognosis, rapid decline, likely hepatorenal syndrome that she would not recover from. Talks had already been in place with her PCP and tnt powder worker about going on hospice. The patient had been losing weight, not eating well, becoming progressively weaker. The patient's two sisters elected to place patient on hospice, as they were both her designated POAs. Initially kept comfortable with Roxanol and Ativan PO. Over last 24 hours required morphine drip and scopolamine patch. Patient peacefully with family at the bedside on 03/16/17 at 20:05. - Cirrhosis with hepatic encephalopathy, ascites, hypotension patient has been declining for the past several months per family, got significantly worse more recently hospice had been suggested by PCP and GI but patient had been reluctant to the idea therapeutic paracentesis on 03/11 for 2 liters of straw colored fluid, no analysis sent d/c all medications except for pain control, hospice care - [facility]ADY, Cr at 1.6, no improvement with IV fluids, strong suspicion for hepatorenal syndrome very little urine output over past 48 hours, more edema patient not eating or drinking at all discussed with family, want hospice, will keep comfortable here inpatient - Agitation: PRN Haldol, worked well when needed - Severe protein calorie malnutrition: albumin low at 1.6 very poor oral intake for past several weeks per family certainly limiting her ability to recover DNR Copy To Juan Carlos Miller M.D.; Celestine Maxwell M.D.
== END 2017-03-16 21:24 | disposition expired | DRG 432 ==
LOC: EDBD 23:20 → C.EDB 23:21 → C.MS4W 03-11 02:21 → ENRESERV 03-11 03:14 → C.4E 03-12 17:36 → OBSVTOIN 03-12 21:37
PROVIDERS: ADMIT Internal Medicine; ATTEND Internal Medicine
DX: K70.40 Alcoholic hepatic failure without coma (principal); E43 Unspecified severe protein-calorie malnutrition; N17.9 Acute kidney failure, unspecified; Z51.5 Encounter for palliative care; Z66 Do not resuscitate; K70.31 Alcoholic cirrhosis of liver with ascites; I10 Essential (primary) hypertension; E86.0 Dehydration; Z87.11 Personal history of peptic ulcer disease; Z90.710 Acquired absence of both cervix and uterus; Z80.9 Family history of malignant neoplasm, unspecified; Z83.3 Family history of diabetes mellitus; Z82.49 Family history of ischemic heart disease and other diseases of the circulatory system